=== PATIENT | female | born 1945 | race Caucasian/White ===

== ENCOUNTER 2017-04-17 19:57 | Inpatient (IN) | payer OTHER ==
[~2017-04-17] VITALS: Ht 142.2 cm; Wt 43.5 kg
[~2017-04-17 19:57] MED LIST: APR10 PO; ASPEC81 PO; ISR10 PO; LPT10 PO; LSX20 PO; NTRSLP4 SL; TPRSR25 PO
[2017-04-17] MEDS ORDERED: ONDANSETRON INJ 2 MG/ML 2 ML VIAL ONE ×2 (20:02→20:26)
[2017-04-17 20:25] LABS: ALLEN TEST POS (POS); O2 ADMINISTRATION 10 L
[2017-04-17 20:27] LABS: BASO % 0.3 %; BASO ABS # 0.02 K/uL (0-0.2); COMPLETE YES; EOS % 0.7 %; HEMATOCRIT 33.6 % (37-47); IG% 1.7 %; LYMPH % 31.1 %; LYMPH ABS # 1.82 K/uL (1.2-3.4); MEAN CELL VOLUME 91.3 fL (80-100); MEAN CORPUSCULAR HEMOGLOBIN 29.6 pg (25-34); MEAN CORPUSCULAR HGB CONC 32.4 g/dl (32-36); MEAN PLATELET VOLUME 10.3 fL (7.4-10.4); MONO % 5.3 %; NEUT % 60.9 %; PLATELET COUNT 201 K/uL (130-400); RED BLOOD COUNT 3.68 M/uL (4.2-5.4); WHITE BLOOD COUNT 5.86 K/uL (4.8-10.8)
[2017-04-17] MEDS ORDERED: ONDANSETRON INJ 2 MG/ML 2 ML VIAL IV STA (20:28)
[2017-04-17 20:29] LABS: ARTERIAL BLD GAS O2 SATURATION 99.4 % (90-95); ARTERIAL BLOOD GAS BASE EXCESS -2.6 mEq/L (-9-1.8); ARTERIAL BLOOD GAS HCO3 22 mmol/L (19-24); ARTERIAL BLOOD GAS PO2 208 mm/Hg (80-95); ARTERIAL BLOOD GAS pH 7.38 (7.35-7.45)
[2017-04-17 20:40] LABS: PARTIAL THROMBOPLASTIN RATIO 0.8; PROTHROMBIN TIME (PATIENT) 10.8 SECONDS (9.0-12.0)
[2017-04-17 20:46] LABS: ALT/SGPT 101 U/L (12-78); AST/SGOT 131 U/L (15-37); BLOOD UREA NITROGEN 24 mg/dl (7-18); CARBON DIOXIDE 21 mmol/L (21-32); CHLORIDE 112 mmol/L (98-107); GLUCOSE 175 mg/dl (70-99); POTASSIUM 3.5 mmol/L (3.5-5.1); SODIUM 143 mmol/L (136-145)
--- NOTE | 2017-04-17 20:50 | DIAGNOSTIC IMAGING REPORT ---
CHEST ONE VIEW PORTABLE CLINICAL HISTORY: Cough. Respiratory difficulty. COMPARISON STUDY: 06/02/2016 FINDINGS: The heart is the upper limits of normal in size. There is no failure. There are bibasal airspace opacities, atelectatic versus infectious/inflammatory. There are no significant pleural effusions.[ IMPRESSION: Nonspecific bibasal airspace opacities. Clinical correlation in regards to a pneumonitis is recommended. Clinical and radiographic follow-up is recommended Electronically signed by: Chapincito Berkowitz M.D. 04/17/2017 8:48 PM Dictated Date/Time: 04/17/2017 8:47 PM
[2017-04-17 20:52] LABS: ALKALINE PHOSPHATASE 78 U/L (45-117); CKMB/CK RATIO 6.1 (0-3.0)
[2017-04-17 20:53] LABS: ISTAT CREATININE 1.6 mg/dl (0.6-1.3); ISTAT HEMOGLOBIN 11.9 g/dl (12.0-16.0); ISTAT IONIZED CALCIUM 1.13 mmol/l (1.12-1.32)
[2017-04-17] MEDS ORDERED: ASPI81TA28 PO (20:58)
[2017-04-17] MEDS ORDERED: HYDR-4715 PO (20:58)
[2017-04-17] MEDS ORDERED: ISS/10 PO (20:58)
[2017-04-17] MEDS ORDERED: NITR0.4S UT (20:58)
[2017-04-17] MEDS ORDERED: METRONIDAZOLE 500MG / 100ML NSS IV STA (20:58)
[2017-04-17] MEDS ORDERED: METO25TA3 PO (20:58)
[2017-04-17] MEDS ORDERED: FURO-85 PO (20:58)
[2017-04-17] MEDS ORDERED: ATOR10TA88 PO (20:58)
[2017-04-17] MEDS ORDERED: LISI10TA PO (20:59)
[2017-04-17] MEDS ORDERED: AMPICILLIN/SULBACTAM SOD INJ 3,000 MG in SODIUM CHLORIDE 0.9% 100ML 100 ML IV ONE (21:00)
--- NOTE | 2017-04-17 21:16 | DIAGNOSTIC IMAGING REPORT ---
CT SCAN OF THE ABDOMEN AND PELVIS WITHOUT CONTRAST CLINICAL HISTORY: Vomiting, abdominal pain, cardiac arrest. COMPARISON STUDY: No previous studies for comparison. TECHNIQUE: CT scan of the abdomen and pelvis was performed from the lung bases to the proximal femurs. Images are reviewed in the axial, sagittal, and coronal planes. IV contrast was not administered for this examination. A dose lowering technique was utilized adhering to the principles of ALARA. CT DOSE: 327.85 mGy.cm FINDINGS: Lower chest: There are small bilateral pleural effusions. There are by basilar interstitial opacities. There is a small hiatal hernia Liver: The unenhanced liver is normal in size, contour, and attenuation. There is no intrahepatic biliary ductal dilatation. Gallbladder: Unremarkable. Spleen: Normal in size and attenuation. Pancreas: Unremarkable. Adrenal glands: Unremarkable. Kidneys: There are bilateral renal calcifications. Is unclear whether these are calculi or parenchymal calcifications. There is no significant hydronephrosis. No ureteral calculi are visualized. Bowel: There are no transition zones indicate bowel obstruction. There is colonic diverticulosis. There are no acute peridiverticular inflammatory changes. There is no evidence of acute appendicitis. Evaluation is limited due to the lack of intravenous and oral contrast as well as motion artifact. There is fluid and formed stool within the rectosigmoid Peritoneum: There is no intraperitoneal free air or abdominal ascites. As a fat-containing umbilical hernia. Vasculature: The abdominal aorta is normal in course and caliber. Adenopathy: None. Pelvic viscera: There are calcifications within uterine fibroids. Skeletal structures: No destructive lesions are visualized. Evaluation is limited due to the lack of intravenous and oral contrast. IMPRESSION: 1. Small bilateral pleural effusions and bibasal interstitial opacities 2. Hiatal hernia 3. No evidence of bowel obstruction. No evidence of free air. Fluid and formed stool within the rectosigmoid 4. No evidence of acute diverticulitis. No evidence of acute appendicitis 5. Calcified fibroid uterus 6. Bilateral renal calcifications, possibly parenchymal. Electronically signed by: Chapincito Berkowitz M.D. 04/17/2017 9:15 PM Dictated Date/Time: 04/17/2017 9:07 PM
--- NOTE | 2017-04-17 21:53 | EMERGENCY ROOM VISIT NOTE ---
History Report prepared by Bernardo: Devaughn Lopez Under the Supervision of: Dr. Steven Aviles D.O. First contact with patient: 19:50 Stated Complaint: CARDIAC ARREST History of Present Illness The patient is a 71 year old female who presents to the Emergency Room with resolved cardiac arrest that occurred [employer]. The patient has a history of a mental disability. Per the family, they heard a noise coming from her room. They found her on the floor in her closet unresponsive and initiated CPR immediately. When the police arrived, they brought in an AED, applied it, and shocked her once, bringing her back into sinus rhythm. When EMS arrived, she was still in sinus rhythm with a good pulse and blood pressure, and she was breathing. Upon arriving, the patient is having episodes of vomiting with some nausea. She went to a oil rag washer 2 weeks ago and received a ECG that was negative. Source of History: patient, family, police, EMS Onset: [employer] Position: other (global) Symptom Intensity: severe Quality: other (Cardiac Arrest) Timing: resolved Associated Symptoms: + nausea, + vomiting Review of Systems See HPI for pertinent positives & negatives. A total of 10 systems reviewed and were otherwise negative. Past Medical & Surgical Medical Problems: (1) Acute exacerbation of CHF (congestive heart failure) (2) CHF (congestive heart failure) (3) CHF (congestive heart failure) (4) Chronic kidney disease (CKD), stage III (moderate) (5) Chronic left ventricular systolic dysfunction (6) Dyslipidemia (7) HTN (hypertension) (8) Intellectual disability Family History Cancer Diabetes mellitus FH: pneumonia FH: prostate cancer Hypertension Kidney disease Kidney stones Seizures Social History Smoking Status: Never Smoker Smokeless Tobacco Use: No Drug Use: none Marital Status: single Housing Status: lives with family Occupation Status: unemployed Current/Historical Medications Scheduled Aspirin (Aspirin Ec), 81 MG PO DAILY Atorvastatin (Lipitor), 10 MG PO HS Furosemide (Lasix), 20 MG PO 2XWK Hydralazine Hcl (Apresoline), 10 MG PO TID Isosorbide Dinitrate (Isordil), 10 MG PO TID Lisinopril (Prinivil), 10 MG PO DAILY Metoprolol Succinate (Toprol Xl), 25 MG PO DAILY Nitroglycerin (Nitrostat), 0.4 MG UT PRN Allergies Coded Allergies: No Known Allergies (Unverified , 06/02/16) Physical Exam Vital Signs Date Time Temp Pulse Resp B/P (MAP) Pulse Ox O2 Delivery O2 Flow Rate FiO2 04/17/17 22:15 66 20 154/78 99 Nasal Cannula 2.0 04/17/17 22:00 65 152/77 100 Nasal Cannula 2.0 04/17/17 21:30 66 124/74 95 Nasal Cannula 2.0 04/17/17 21:15 65 22 145/72 94 Nasal Cannula 2.0 04/17/17 20:45 69 21 137/80 94 Nasal Cannula 2.0 04/17/17 20:40 95 Nasal Cannula 2.0 04/17/17 20:40 36.9 86 14 170/93 88 Room Air 04/17/17 20:25 73 24 150/75 99 Nasal Cannula 4.0 04/17/17 20:20 100 Nasal Cannula 4.0 04/17/17 20:15 66 21 150/71 100 Non-Rebreather 10.0 04/17/17 20:10 84 04/17/17 20:01 100 Non-Rebreather 15.0 Physical Exam CONSTITUTIONAL/VITAL SIGNS: Reviewed / noted above. GENERAL: Non-toxic in appearance. INTEGUMENTARY: Warm, dry, and [place]. HEAD: Normocephalic. EYES: without scleral icterus or trauma. ENT/OROPHARYNX: clear and moist. LYMPHADENOPATHY/NECK: Is supple without lymphadenopathy or meningismus. RESPIRATORY: Decreased breath sounds on the right. CARDIOVASCULAR: Regular rate and rhythm. GI/ABDOMEN: Soft and nontender. No organomegaly or pulsatile mass. No rebound or guarding. Normal bowel sounds. EXTREMITIES: Warm and well perfused. BACK: No CVA tenderness. NEUROLOGICAL: Intact without focal deficits. PSYCHIATRIC: normal affect. MUSCULOSKELETAL: Normally developed with good muscle tone. Medical Decision & Procedures ER Provider Diagnostic Interpretation: Radiology results as stated below per my review and radiologist interpretation: CHEST ONE VIEW PORTABLE CLINICAL HISTORY: Cough. Respiratory difficulty. COMPARISON STUDY: 06/02/2016 FINDINGS: The heart is the upper limits of normal in size. There is no failure. There are bibasal airspace opacities, atelectatic versus infectious/inflammatory. There are no significant pleural effusions.[ IMPRESSION: Nonspecific bibasal airspace opacities. Clinical correlation in regards to a pneumonitis is recommended. Clinical and radiographic follow-up is recommended Electronically signed by: Chapincito Berkowitz M.D. 04/17/2017 8:48 PM Dictated Date/Time: 04/17/2017 8:[address] SCAN OF THE ABDOMEN AND PELVIS WITHOUT CONTRAST CLINICAL HISTORY: Vomiting, abdominal pain, cardiac arrest. COMPARISON STUDY: No previous studies for comparison. TECHNIQUE: CT scan of the abdomen and pelvis was performed from the lung bases to the proximal femurs. Images are reviewed in the axial, sagittal, and coronal planes. IV contrast was not administered for this examination. A dose lowering technique was utilized adhering to the principles of ALARA. CT DOSE: 327.85 mGy.cm FINDINGS: Lower chest: There are small bilateral pleural effusions. There are by basilar interstitial opacities. There is a small hiatal hernia Liver: The unenhanced liver is normal in size, contour, and attenuation. There is no intrahepatic biliary ductal dilatation. Gallbladder: Unremarkable. Spleen: Normal in size and attenuation. Pancreas: Unremarkable. Adrenal glands: Unremarkable. Kidneys: There are bilateral renal calcifications. Is unclear whether these are calculi or parenchymal calcifications. There is no significant hydronephrosis. No ureteral calculi are visualized. Bowel: There are no transition zones indicate bowel obstruction. There is colonic diverticulosis. There are no acute peridiverticular inflammatory changes. There is no evidence of acute appendicitis. Evaluation is limited due to the lack of intravenous and oral contrast as well as motion artifact. There is fluid and formed stool within the rectosigmoid Peritoneum: There is no intraperitoneal free air or abdominal ascites. As a fat-containing umbilical hernia. Vasculature: The abdominal aorta is normal in course and caliber. Adenopathy: None. Pelvic viscera: There are calcifications within uterine fibroids. Skeletal structures: No destructive lesions are visualized. Evaluation is limited due to the lack of intravenous and oral contrast. IMPRESSION: 1. Small bilateral pleural effusions and bibasal interstitial opacities 2. Hiatal hernia 3. No evidence of bowel obstruction. No evidence of free air. Fluid and formed stool within the rectosigmoid 4. No evidence of acute diverticulitis. No evidence of acute appendicitis 5. Calcified fibroid uterus 6. Bilateral renal calcifications, possibly parenchymal. Electronically signed by: Chapincito Berkowitz M.D. 04/17/2017 9:15 PM Dictated Date/Time: 04/17/2017 9:07 PM Laboratory Results 04/17/17 20:10 Red Blood Count 3.68, Mean Corpuscular Volume 91.3, Mean Corpuscular Hemoglobin 29.6, Mean Corpuscular Hemoglobin Concent 32.4, Mean Platelet Volume 10.3, Neutrophils (%) (Auto) 60.9, Lymphocytes (%) (Auto) 31.1, Monocytes (%) (Auto) 5.3, Eosinophils (%) (Auto) 0.7, Basophils (%) (Auto) 0.3, Neutrophils # (Auto) 3.57, Lymphocytes # (Auto) 1.82, Monocytes # (Auto) 0.31, Eosinophils # (Auto) 0.04, Basophils # (Auto) 0.02 04/17/17 20:10 Test 04/17/17 20:10 04/17/17 20:14 04/17/17 20:17 04/17/17 20:18 White Blood Count 5.86 K/uL (4.8-10.8) Red Blood Count 3.68 M/uL (4.2-5.4) Hemoglobin 10.9 g/dL (12.0-16.0) Hematocrit 33.6 % (37-47) Mean Corpuscular Volume 91.3 fL (80-100) Mean Corpuscular Hemoglobin 29.6 pg (25-34) Mean Corpuscular Hemoglobin Concent 32.4 g/dl (32-36) Platelet Count 201 K/uL (130-400) Mean Platelet Volume 10.3 fL (7.4-10.4) Neutrophils (%) (Auto) 60.9 % Lymphocytes (%) (Auto) 31.1 % Monocytes (%) (Auto) 5.3 % Eosinophils (%) (Auto) 0.7 % Basophils (%) (Auto) 0.3 % Neutrophils # (Auto) 3.57 K/uL (1.4-6.5) Lymphocytes # (Auto) 1.82 K/uL (1.2-3.4) Monocytes # (Auto) 0.31 K/uL (0.11-0.59) Eosinophils # (Auto) 0.04 K/uL (0-0.5) Basophils # (Auto) 0.02 K/uL (0-0.2) RDW Standard Deviation 46.8 fL (36.4-46.3) RDW Coefficient of Variation 13.9 % (11.5-14.5) Immature Granulocyte % (Auto) 1.7 % Immature Granulocyte # (Auto) 0.10 K/uL (0.00-0.02) Prothrombin Time 10.8 SECONDS (9.0-12.0) Prothromb Time International Ratio 1.0 (0.9-1.1) Activated Partial Thromboplast Time 21.0 SECONDS (21.0-31.0) Partial Thromboplastin Ratio 0.8 Estimated GFR () 34.3 Estimated GFR (Non- 29.6 BUN/Creatinine Ratio 14.0 (10-20) Calcium Level 8.0 mg/dl (8.5-10.1) Total Bilirubin 0.3 mg/dl (0.2-1) Direct Bilirubin < 0.1 mg/dl (0-0.2) Aspartate Amino Transf (AST/SGOT) 131 U/L (15-37) Alanine Aminotransferase (ALT/SGPT) 101 U/L (12-78) Alkaline Phosphatase 78 U/L (45-117) Total Creatine Kinase 116 U/L (26-192) Creatine Kinase MB 7.1 ng/ml (0.5-3.6) Creatine Kinase MB Ratio 6.1 (0-3.0) Total Protein 7.3 gm/dl (6.4-8.2) Albumin 3.1 gm/dl (3.4-5.0) Lipase 322 U/L (73-393) Bedside Lactic Acid Venous 3.33 mmol/L (0.90-1.70) Arterial Blood pH 7.38 (7.35-7.45) Arterial Blood Partial Pressure CO2 39 mmHg (35-46) Arterial Blood Partial Pressure O2 208 mm/Hg (80-95) Arterial Blood HCO3 22 mmol/L (19-24) Arterial Blood Oxygen Saturation 99.4 % (90-95) Arterial Blood Base Excess -2.6 mEq/L (-9-1.8) Arterial Blood Gas Delivery 10 L Ar Test POS (POS) Bedside Hemoglobin 11.9 g/dl (12.0-16.0) Bedside Hematocrit 35 % (37-47) Bedside Sodium 142 mEq/L (135-144) Bedside Potassium 3.9 mEq/L (3.3-5.0) Bedside Chloride 108 mEq/L (101-112) Bedside Total CO2 23 mEq/l (24-31) Anion Gap 17.0 mmol/L (16-25) Bedside Blood Urea Nitrogen 29 mg/dl (7-18) Bedside Creatinine 1.6 mg/dl (0.6-1.3) Bedside Glucose (other) 182 mg/dl (70-99) Bedside Ionized Calcium (Feliz) 1.13 mmol/l (1.12-1.32) Test 04/17/17 21:10 Laboratory results as stated above per my review. Medications Administered Medications (Trade) Dose Ordered Sig/Kaila Route Start Time Stop Time Status Last Admin Dose Admin Ondansetron HCl (Zofran Inj) 4 mg STK-MED ONCE .ROUTE 04/17/17 20:02 04/17/17 20:03 DC 04/17/17 20:52 4 MG Ondansetron HCl (Zofran Inj) 4 mg NOW STAT IV 04/17/17 20:28 04/17/17 20:29 DC 04/17/17 20:53 4 MG Ampicillin Sodium/ Sulbactam Sodium 3000 mg/Sodium Chloride 108 ml @ 200 mls/hr ONE ONCE IV 04/17/17 21:00 04/17/17 21:32 DC 04/17/17 21:26 200 MLS/HR Metronidazole (Flagyl / Nss) 500 mg NOW STAT IV 04/17/17 20:58 04/17/17 21:01 DC 04/17/17 22:54 500 MG ECG Indication: other (Cardiac Arrest) Rate (beats per minute): 72 Rhythm: normal sinus Findings: no acute ischemic change, no ectopy ED Course 1949: Previous medical records were reviewed. The patient was evaluated in room B1. A complete history and physical examination was performed. 2001: Ordered Zofran Inj 4 mg .ROUTE 2025: Ordered Zofran Inj 4 mg .ROUTE 2027: Ordered Zofran Inj 4 mg IV 2030: The patient's sister has arrived at this time. The patient lives with her. Her sister states that the patient had no complaints earlier this evening. She was folding her clothing like usual and ate dinner. She noticed the dog was acting weird and went in to check on her sister again and noticed she was lifeless on the ground. She denies any seizure activity. The sister's initiated CPR until police came 3-5 minutes later. They continued CPR until EMS arrived. She states that currently the patient is at baseline mentally. 2057: Ordered Flagyl / Nss 500 mg IV 2099: Ordered Ampicillin Sodium/ Sulbactam Sodium 3000 mg/Sodium Chloride 108 ml @ 200 mls/hr IV 2103: On reevaluation, the patient is resting. I discussed the results and findings with the patient's family. They verbalized agreement of the treatment plan. I spoke with Dr. Bucio of the [facility]. The patient will be evaluated for further management and care. Medical Decision Differential includes acute cardiac dysrhythmia, microinfarction, CVA, TIA, dehydration, anemia, electrolyte disturbance, seizure, trauma, intracranial bleeding, acute vascular catastrophe, thoracic aortic dissection, PE, abdominal aortic aneurysm rupture, infection, hypoglycemia, overdose, trauma. This is a 71-year-old female who was found unresponsive by the family. The patient has a history of MR. Baseline for the patient is that she does not walk. She does crawl around. She responds and speaks but it is difficult to understand at baseline. The patient was fine 10 minutes prior to being found unresponsive on the floor in her bedroom. The patient was not believed to be breathing by the family and CPR was initiated. The family member who was performing CPR stated that she did seem to breathe several times during the 3 minutes of CPR. Police arrived on scene and AED advised shock. The patient was shocked once. When EMS arrived on scene, they found the patient to have pulses and be in a sinus rhythm. The patient slowly regained consciousness during EMS transport. Prehospital blood sugar was in the 300 range. There was no reported seizure activity per family. The patient did not have any specific complaints prior to the episode today. She ate about 1 hour prior. On the patient's arrival, the patient is found to be awake and alert. Family arrived shortly thereafter. The patient is currently at her baseline mental status. The patient is observant of her surroundings. She does attempt to speak but she is difficult to understand for me. The family is able to understand her better. She follows some basic commands. The patient's exam was relatively unremarkable. She did complain of some abdominal discomfort on palpation. Blood work reveals an elevated troponin. She has some mild anemia. ABG reveals a normal acid base status with adequate oxygenation and ventilation. Chest x-ray is suggestive of possible infiltrate or atelectasis. A CT scan of the abdomen and pelvis did not show acute process. The patient was started on IV antibiotics. IV Unasyn and IV Flagyl for possible aspiration. The patient did vomit several times in the emergency department. Her 12-lead EKG did not show any acute injury pattern. She did not have any arrhythmias here. She was given Zofran for the nausea and vomiting. The patient will be seen by the hospitalist, for further inpatient evaluation and care. Medication Reconcilliation Current Medication List: was personally reviewed by me Blood Pressure Screening Patient's blood pressure: Elevated blood pressure Blood pressure disposition: Elevated BP felt to be situational Consults Time Called: 2099 Consulting Physician: Dr. Rupinder Almeida Hospitalist Returned Call: 2103 Discussed the patient's case. The patient will be evaluated for further treatment and disposition. Impression Primary Impression: Cardiac arrest Additional Impressions: Elevated troponin Aspiration pneumonitis Critical Care I have personally spent 35 minutes of critical care time in the direct management of this patient. This includes bedside care, interpretation of diagnostic studies, and testing, discussion with consultants, patient, and family members, and other required patient management activities. Scribe Attestation The scribe's documentation has been prepared under my direction and personally reviewed by me in its entirety. I confirm that the note above accurately reflects all work, treatment, procedures, and medical decision making performed by me. Departure Information Dispostion Being Evaluated By Hospitalist Referrals Edda Suggs M.D. (PCP) Problem Qualifiers
--- NOTE | 2017-04-17 22:06 | DIAGNOSTIC IMAGING REPORT ---
CT HEAD WITHOUT CONTRAST (CT) CLINICAL HISTORY: Cardiac arrest. Change in mental status. Unresponsive patient. COMPARISON STUDY: 06/02/2016 TECHNIQUE: Axial CT of the brain is performed from the vertex to the skull base. IV contrast was not administered for this examination. A dose lowering technique was utilized adhering to the principles of ALARA. CT DOSE: 1151.75 mGy.cm FINDINGS: No intra or extra-axial mass lesions are visualized. 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 There is no CT evidence of acute cortical infarction. There is no acute hemorrhage. There are patchy white matter hypodensities likely on a small vessel basis. There is mild maxillary sinus mucosal thickening. IMPRESSION: Stable left hemispheric porencephalic cyst. No acute intracranial findings. Electronically signed by: Chapincito Berkowitz M.D. 04/17/2017 10:04 PM Dictated Date/Time: 04/17/2017 10:00 PM
[2017-04-17] MEDS ORDERED: ALBUT/IPRATROP 3MG/0.5MG NEB 3 ML VIAL INH STA (22:23)
[2017-04-17] MEDS ORDERED: TRAMADOL HCL 50 MG TAB PO PRN (22:30)
[2017-04-17] MEDS ORDERED: ALBUT/IPRATROP 3MG/0.5MG NEB 3 ML VIAL INH PRN (22:30)
[2017-04-17] MEDS ORDERED: HYDROmorphone INJ 0.5 MG/0.5 ML SYR IV PRN (22:30)
[2017-04-17] MEDS ORDERED: PROMETHAZINE HCL INJ 12.5 MG in SODIUM CHLORIDE 0.9% 50ML 50 ML IV PRN (22:30)
[2017-04-17] MEDS ORDERED: ACETAMINOPHEN 325 MG TAB PO PRN ×2 (22:30→23:00)
[2017-04-17] MEDS ORDERED: NITROGLYCERIN 0.4 MG SL PER TAB CHARGE SL PRN (22:30)
[2017-04-17] MEDS ORDERED: ALBUT/IPRATROP 3MG/0.5MG NEB 3 ML VIAL ONE (22:34)
[2017-04-17] MEDS ORDERED: AMPICILLIN/SULBACTAM CONSULT ACTIVE PRN ×2 (22:45)
[2017-04-17 23:25] VITALS: BP 139/62; PULSE 77; TEMP 36.4; O2SAT 98; Ht 142.2 cm; Wt 43.5 kg
[2017-04-17 23:26] LABS: MAGNESIUM 2.1 mg/dl (1.8-2.4)
[2017-04-17] MEDS ORDERED: POTASSIUM CHLORIDE 10 MEQ TABCR PO ONE (23:30)
[2017-04-17] MEDS ORDERED: LACTATED RINGER'S 1000ML 1,000 ML IV SCH (23:30)
[2017-04-18] MEDS: HydrALAZINE 10 MG TAB PO SCH ×4 (00:14→21:32)
[2017-04-18 00:27] LABS: MANUAL MICROSCOPIC REQUIRED? NO; REVIEW REQ? YES; URINE APPEARANCE CLEAR (CLEAR); URINE BILIRUBIN NEG (NEG); URINE COLOR YELLOW; URINE EPITHELIAL CELL AUTO >30 /lpf (0-5); URINE NITRITE NEG (NEG); URINE SPECIFIC GRAVITY 1.016 (1.000-1.030); UROBILINOGEN NEG (NEG); ZZUR CULT IF INDIC CLEAN CATCH NO
--- NOTE | 2017-04-18 02:42 | HISTORY & PHYSICAL EXAMINATION ---
DATE OF ADMISSION: 04/17/2017 PRIMARY CARE DOCTOR: Dr. Suggs CHIEF COMPLAINT: Cardiac arrest as per records. HISTORY OF PRESENT ILLNESS: History was obtained from ER MD, family, and records. Unable to obtain history from the patient secondary to intellectual impairment. Medical history is significant for chronic systolic heart failure secondary to presumed ischemic cardiomyopathy, small pericardial effusion per records, hypertension, hyperlipidemia, chronic renal disease (baseline creatinine of 1.4) , chronic anemia (baseline hemoglobin of 10-11). Recent confinement last February 2016 for decompensated heart failure. Last followup with [facility] last month. Stable cardiac signs and symptoms as per outpatient note. A 2D echo in August 2016 showed [id number] LV systolic dysfunction, large sized apical, anteroseptal, anterior, posterior, lateral wall abnormality with hypokinetic segments. Calculated EF was 32%. LAD, mild MR, small pericardial effusion, no pulmonary hypertension. This afternoon, the patient's family heard a noise coming from patient's room. PX was found a room closet, unresponsive. Cardiac compressions were initiated by [id number]. When police arrived, AED was applied to patient. Shock advised and delivered. A few minutes later, the patient woke up. Good pulse and good blood pressure as per family. Patient was breathing. Normal sinus rhythm on initial EKG done by EMS. Patient later was noted to have vomited - cough, gurgly breathing later noted. Patient was brought to the Emergency Room. Unasyn for possible aspiration pneumonitis. MEDICAL HISTORY: As above. SURGERIES: Childhood foot surgery. HOME MEDICATIONS: aspirin, Lipitor, Lasix, hydralazine, Isordil, lisinopril, Topral XL and Nitrostat. ALLERGIES: No drug allergies. FAMILY HISTORY: Kidney disease. PERSONAL AND SOCIAL HISTORY: Nonsmoker. No chronic intake of alcoholic beverages. Disabled, lives with sister. REVIEW OF SYSTEMS: could not be fully obtained. PHYSICAL EXAMINATION: VITAL SIGNS: Blood pressure was noted to be 150/78 pulse 65, RR 21, temperature 36.9 and sats 100 on 4 liters. GENERAL: Noted to be comfortable, in no respiratory distress, coherent. Gurgly respiration SKIN: Pallor. HEENT: Pale palpebral conjunctivae. Dry mucosa. NECK: No JVD. Supple. CHEST: Decreased effort. HEART: Diminished S1, S2. ABDOMEN: Soft. EXTREMITIES: No edema. No tenderness on exam. NEUROLOGIC: Coherent. LABORATORIES: Hemoglobin was noted to be 10.9, hematocrit 30, white cell count 5.8 and platelets of 206. Sodium 140, potassium 3.5 chloride 106, CO2 21, BUN 24, creatinine 1.7 and glucose was noted to be 182. troponin was noted to be 0.305. EKG as per my interpretation : rate 75, normal sinus rhythm, biatrial enlargements, LVH, T-wave flattening in the lateral leads, poor R-wave progression Chest x-ray; nonspecific bibasilar airspace opacities, pneumonitis. CT abdomen and pelvis; small bilateral pleural effusions, hiatal hernia, no bowel obstruction. No diverticulitis. Fibroid uterus, renal calcification possibly parenchymal. CT of the head; stable left porencephalic cyst. ASSESSMENT: 1. Cardiac arrest Return of spontaneous circulation obtained after CPR/1 AED shock at home. Patient brought to the emergency room with stable vital signs and at baseline mentation as per family. Patient certainly at risk for malignant ventricular arrhythmias given history of cardiomyopathy presumed to be ischemic. 2. Chronic systolic heart failure presumed ischemic cardiomyopathy (ejection fraction of 32% on 2D echo in 2016) Patient may slightly on the dry side. 3. aspiration pneumonitis post arrest, no sepsis 4. Acute renal failure on chronic renal insufficiency. 5. Chronic anemia secondary to CKD, hemoglobin baseline 6. History intellectual impairment 7. hyperglycemia rule out diabetes mellitus PLAN: PCU Augment potassium 2D echo, Cardiology consult RE : cardiac arrest. Patient known to [facility]. Unasyn for possible aspiration pneumonitis. Monitor creatinine response to gentle IV hydration. Hold home diuretics. ACEI for now until creatinine at baseline. Check hemoglobin A1c DVT prophylaxis, Heparin subQ. Code 2 level status, okay with one time CPR and shock attempt/no intubation as per sister/POA, Miss Rochelle Concepcion. She requests updates from providers at [phone]. MTDD
[2017-04-18 04:39] VITALS: BP 145/78; PULSE 77; TEMP 36.9; O2SAT 96
[2017-04-18] MEDS: HEPARIN SOD 5000 UNIT/0.5 ML CARP SQ SCH ×3 (06:05→21:37)
[2017-04-18 06:23] LABS: BASO % 0.1 %; BASO ABS # 0.01 K/uL (0-0.2); COMPLETE YES; HEMATOCRIT 31.8 % (37-47); IG% 0.1 %; LYMPH % 13.6 %; LYMPH ABS # 1.13 K/uL (1.2-3.4); MEAN CELL VOLUME 90.9 fL (80-100); MEAN CORPUSCULAR HEMOGLOBIN 29.4 pg (25-34); MEAN CORPUSCULAR HGB CONC 32.4 g/dl (32-36); MONO % 8.1 %; NEUT % 78.1 %; PLATELET COUNT 180 K/uL (130-400); WHITE BLOOD COUNT 8.31 K/uL (4.8-10.8)
[2017-04-18] MEDS: ISOSORBIDE DINITRATE 10 MG TAB PO SCH ×3 (07:00→17:26)
[2017-04-18 07:13] LABS: ALKALINE PHOSPHATASE 62 U/L (45-117); ALT/SGPT 88 U/L (12-78); AST/SGOT 92 U/L (15-37); BLOOD UREA NITROGEN 21 mg/dl (7-18); BUN/CREATININE RATIO 15.1 (10-20); CALCIUM 8.2 mg/dl (8.5-10.1); CARBON DIOXIDE 25 mmol/L (21-32); CHLORIDE 113 mmol/L (98-107); GLUCOSE 117 mg/dl (70-99); POTASSIUM 4.2 mmol/L (3.5-5.1); SODIUM 143 mmol/L (136-145)
[2017-04-18 07:41] VITALS: BP 154/76; PULSE 72; TEMP 36.9; O2SAT 96
[2017-04-18] MEDS: AMPICILLIN/SULBACTAM SOD INJ 3,000 MG in SODIUM CHLORIDE 0.9% 100ML 100 ML IV SCH ×2 (10:11→21:32)
[2017-04-18] MEDS: ASPIRIN 81 MG ECTAB PO SCH (10:12)
[2017-04-18] MEDS: METOPROLOL SUCC 25MG EXT REL TAB PO SCH (10:12)
--- NOTE | 2017-04-18 13:17 | ECHOCARDIOGRAM REPORT ---
*NOTICE TO RECEIVING DEMOCRAT AGENCY This information is strictly Confidential and protected under [place] law. [place] law prohibits you from making any further disclosure of this information unless further disclosure is expressly permitted by the written consent of the person to whom it pertains or is authorized by law. A general authorization for the release of medical or other information is not sufficient for this purpose. Hospital accepts no responsibility if the information is made available to any other person, INCLUDING THE PATIENT. Interpretation Summary * Name: HOLLY MOSLEY Study Date: 04/18/2017 09:16 AM * Patient Location: .2E\S\E209\S\1 * : 1945 (M/d/yyyy) Gender: Female Height: 58 in * Age: 71 yrs Ethnicity: CA Weight: 98 lb * Ordering Physician: Ruddy Bucio * Referring Physician: Self, Referred * Performed By: Janell Rodas RCS * * Reason For Study: Cardiac Arrest * BSA: 1.3 m2 * -- Conclusions -- * The left ventricle is normal in size. * There is moderate concentric left ventricular hypertrophy. * Ejection Fraction = 35-40%. * The right ventricular systolic function is normal. * The left atrium is moderately dilated. * Right atrial size is normal. * There is mild to moderate mitral regurgitation. * There is trace tricuspid regurgitation. Procedure Details * Left Ventricle The left ventricle is normal in size. There is moderate concentric left ventricular hypertrophy. Ejection Fraction = 35-40%. * Right Ventricle The right ventricle is normal size. The right ventricular systolic function is normal. * Atria The left atrium is moderately dilated. Right atrial size is normal. There is no evidence of atrial septal defect, but resolution does not allow assessment for a patent foramen ovale. * Mitral Valve The mitral valve anatomy is normal. There is mild to moderate mitral regurgitation. * Tricuspid Valve The tricuspid valve anatomy is normal. There is trace tricuspid regurgitation. * Aortic Valve The aortic valve is tricuspid. The leaflet thickness if normal. There is no aortic stenosis, and no significant insufficiency. Aortic stenosis is absent. There is no significant aortic regurgitation. * Pulmonic Valve The pulmonic valve is not well visualized. There is no pulmonic valvular regurgitation. * Great Vessels The aortic root and proximal ascending aorta are normal sized. * Pericardium/Pleural There is no pericardial effusion. * * MMode 2D Measurements and Calculations * IVSd 1.0 cm * * LVIDd 5.5 cm * LVIDs 4.2 cm * LVPWd 0.75 cm * * IVS/LVPW 1.4 * FS 22.4 % * EDV(Teich) 145.6 ml * ESV(Teich) 80.4 ml * EF(Teich) 44.7 % * * EDV(cubed) 163.7 ml * ESV(cubed) 76.3 ml * EF(cubed) 53.4 % * * LV mass(C)d 179.2 grams * LV mass(C)dI 133.2 grams/m\S\2 * * SV(Teich) 65.1 ml * SI(Teich) 48.4 ml/m\S\2 * SV(cubed) 87.3 ml * SI(cubed) 64.9 ml/m\S\2 * * Ao root diam 2.5 cm * Ao root area 4.9 cm\S\2 * * LVOT diam 2.0 cm * LVOT area 3.2 cm\S\2 * * LVAd ap4 27.0 cm\S\2 * LVLd ap4 6.9 cm * EDV(MOD-sp4) 85.8 ml * EDV(sp4-el) 90.0 ml * LVAs ap4 17.8 cm\S\2 * LVLs ap4 6.5 cm * ESV(MOD-sp4) 38.8 ml * ESV(sp4-el) 41.6 ml * EF(MOD-sp4) 54.7 % * EF(sp4-el) 53.8 % * * LVAd ap2 33.1 cm\S\2 * LVLd ap2 7.9 cm * EDV(MOD-sp2) 111.5 ml * EDV(sp2-el) 118.6 ml * LVAs ap2 20.8 cm\S\2 * LVLs ap2 6.8 cm * ESV(MOD-sp2) 52.6 ml * ESV(sp2-el) 54.0 ml * EF(MOD-sp2) 52.8 % * EF(sp2-el) 54.5 % * * LVLd %diff 12.3 % * EDV(MOD-bp) 106.2 ml * LVLs %diff 5.0 % * ESV(MOD-bp) 46.3 ml * EF(MOD-bp) 56.4 % * * SV(MOD-sp4) 46.9 ml * SI(MOD-sp4) 34.9 ml/m\S\2 * * SV(MOD-sp2) 58.9 ml * SI(MOD-sp2) 43.8 ml/m\S\2 * * SV(MOD-bp) 59.9 ml * SI(MOD-bp) 44.5 ml/m\S\2 * * SV(sp4-el) 48.4 ml * SI(sp4-el) 36.0 ml/m\S\2 * * SV(sp2-el) 64.7 ml * SI(sp2-el) 48.1 ml/m\S\2 * * * Doppler Measurements and Calculations * MV E max palmer 85.2 cm/sec * MV A max palmer 135.3 cm/sec * * MV E/A 0.63 * * MV dec time 0.11 sec * * Ao V2 max 119.1 cm/sec * Ao max PG 5.7 mmHg * Ao max PG (full) 3.4 mmHg * SHIMON(V,A) 2.0 cm\S\2 * SHIMON(V,D) 2.0 cm\S\2 * * LV V1 max PG 2.3 mmHg * * LV V1 max 76.0 cm/sec * * * *
[2017-04-18 14:00] VITALS: BP 162/81; PULSE 68; TEMP 36.8; O2SAT 98
[2017-04-18 15:49] VITALS: BP 195/104; PULSE 75; TEMP 36.5; O2SAT 98
--- NOTE | 2017-04-18 16:29 | CARDIOLOGY CONSULTATION ---
DATE OF CONSULTATION: 04/18/2017 CONSULTATION FOR: Juan Pablo luevano. REASON FOR CONSULTATION: Post-cardiac arrest. HISTORY OF PRESENT ILLNESS: This is a 71-year-old mentally challenged female who lives with her sister and her . Her sister is the power of employment attorney. The patient is followed by Dr. Castanon with a history of chronic systolic heart failure, presumed due to an ischemic cardiomyopathy. She also has nonrheumatic mitral regurgitation and chronic renal insufficiency. She was in her usual state of health yesterday when suddenly they noted that she was unresponsive and on the floor. The daughter's started CPR and when the police arrived there, they used an AED to shock her once to restore her heart rhythm. She was then brought to the Emergency Department. The patient is back to her baseline cognitive ability. She is currently stable and according to her sister, she is doing well. The sister is on chronic dialysis. Her next dialysis treatment is tomorrow and then Wednesday. She was hoping to have patient back home late tomorrow so that she could spend the day with her on Wednesday before having to go to dialysis. We discussed end of life care and circumstances. This patient has been in no intubation, and medications and cardioversion only in the past. The daughter had some reservation about providing the shock that she did give her at home. I reassured her that it was the right decision and that patient is back to baseline and should be able to return home. ALLERGIES: No known medical allergies. PAST MEDICAL HISTORY: As outlined above, patient has what is presumed an ischemic cardiomyopathy with severe LV dysfunction. Her estimated left ventricular ejection fraction is around 25% to 30%. She also has mitral regurgitation which is nonrheumatic. 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 She is mentally challenged. SOCIAL HISTORY: She is a never smoke. FAMILY MEDICAL HISTORY: Noncontributory. REVIEW OF SYSTEMS: A 10-point review of systems is negative except for the history of chief complaint. IMPRESSION: 1. Cardiac arrest, status post recovery with 1 shock delivered by an automated external defibrillator. 2. Known ischemic cardiomyopathy with left ventricular dysfunction. 3. Mitral regurgitation. 4. Chronic stage III or IV kidney disease. 5. Mentally challenged. RECOMMENDATIONS: As above, I had a long discussion with the sister who this patient lives with and has cared for her for many years. In the past, she has been in no intubation, and drugs and shock only. The patient is back to her baseline. The sister struggles with the need for dialysis as well as caring for her sister. If possible, she would like her to be discharged tomorrow so that she can spend Wednesday, her off dialysis day with her before having to go to dialysis on Wednesday. We had a discussion regarding quality and quantity of life. I think conservative management is appropriate and we should help the family with whenever arrangements can be made. LEROY
--- NOTE | 2017-04-18 16:58 | Progress Note ---
Internal Med Progress Note Date of Service: Apr 18, 2017. Provider Documentation: SUBJECTIVE: patient resting comfortably patient is mentally challenged can tekl her name sister with whom patient lives is in the room patient seems at baseline says some abdominal discomfort no chest pain hemodynamics stable sister does not want any aggressive measures like Cath OBJECTIVE: Vital Signs-as noted below Exam: General-alert and awake. Not in distress ENT-Normal hearing Neck-no neck masses supple Lungs-cta b/l no wheezing no crackles present Heart-s1 and s2 heard regular rate and rhythm no murmurs Abdomen-soft bowel sounds present non tender no distension Extremities- no erythema no edema Neuro-alert and oriented moves extremities Lab data as noted below. ASSESSMENT & PLAN: 1. Cardiac arrest As per H and P:"Return of spontaneous circulation obtained after CPR/1 AED shock at home. Patient brought to the emergency room with stable vital signs and at baseline mentation as per family". Hx of ischemic cardiomyopathy echo ef 35-40%, moderate LVH, mild to moderate MR,Left atrium moderately dilated Currently asymptomatic lactic acid 2.5 at admission mostly from cardiac arrest- normalized now. Seen by cardiology and appreciate inputs. Monitor in tele 2. elevated troponin Troponin 2.5 NSTEMI From demand ischemia? mostly from cardiac arrest and shock asymptomatic currently 3. Chronic systolic heart failure presumed ischemic cardiomyopathy (ejection fraction of 32% on 2D echo in 2016) Patient may slightly on the dry side.ON Toprol, hydralazine and nitrates. On gentle fluids. Will monitor for volume overload. 4. aspiration pneumonitis post arrest, no sepsis On Unasyn. Will monitor. 5. Acute renal failure on chronic renal insufficiency. Presented with cr 1.7 Cr today 1.4. At baseline. will f/u labs. 6. Chronic anemia secondary to CKD, hemoglobin baseline at 10.3 7. History intellectual impairment 8. hyperglycemia rule out diabetes will f/u hba1c levels DVT PROPHYLAXIS hep sub q DISPOSITION monitor in tele to be determined Vital Signs: Date Time Temp Pulse Resp B/P (MAP) Pulse Ox O2 Delivery O2 Flow Rate FiO2 04/18/17 15:49 36.5 75 24 195/104 (134) 98 Nasal Cannula 2.0 04/18/17 14:00 36.8 68 20 162/81 (108) 98 04/18/17 12:00 Nasal Cannula 2.0 04/18/17 08:00 Nasal Cannula 2.0 04/18/17 07:41 36.9 72 20 154/76 (102) 96 Nasal Cannula 2.0 04/18/17 04:39 36.9 77 18 145/78 (100) 96 Nasal Cannula 04/18/17 04:00 Nasal Cannula 2.0 04/17/17 23:25 36.4 77 18 139/62 98 Nasal Cannula 2.0 04/17/17 22:48 70 21 146/72 96 04/17/17 22:45 70 21 146/72 100 Nebulizer 8.0 04/17/17 22:30 68 21 144/73 96 Nasal Cannula 2.0 04/17/17 22:15 66 20 154/78 99 Nasal Cannula 2.0 04/17/17 22:00 65 152/77 100 Nasal Cannula 2.0 04/17/17 21:30 66 124/74 95 Nasal Cannula 2.0 04/17/17 21:15 65 22 145/72 94 Nasal Cannula 2.0 04/17/17 20:45 69 21 137/80 94 Nasal Cannula 2.0 04/17/17 20:40 95 Nasal Cannula 2.0 04/17/17 20:40 36.9 86 14 170/93 88 Room Air 04/17/17 20:25 73 24 150/75 99 Nasal Cannula 4.0 04/17/17 20:20 100 Nasal Cannula 4.0 04/17/17 20:15 66 21 150/71 100 Non-Rebreather 10.0 04/17/17 20:10 84 04/17/17 20:01 100 Non-Rebreather 15.0 Lab Results: Results Past 24 Hours Test 04/17/17 20:10 04/17/17 20:14 04/17/17 20:17 04/17/17 20:18 Range/Units White Blood Count 5.86 4.8-10.8 K/uL Red Blood Count 3.68 4.2-5.4 M/uL Hemoglobin 10.9 12.0-16.0 g/dL Hematocrit 33.6 37-47 % Mean Corpuscular Volume 91.3 80-100 fL Mean Corpuscular Hemoglobin 29.6 25-34 pg Mean Corpuscular Hemoglobin Concent 32.4 32-36 g/dl Platelet Count 201 130-400 K/uL Mean Platelet Volume 10.3 7.4-10.4 fL Neutrophils (%) (Auto) 60.9 % Lymphocytes (%) (Auto) 31.1 % Monocytes (%) (Auto) 5.3 % Eosinophils (%) (Auto) 0.7 % Basophils (%) (Auto) 0.3 % Neutrophils # (Auto) 3.57 1.4-6.5 K/uL Lymphocytes # (Auto) 1.82 1.2-3.4 K/uL Monocytes # (Auto) 0.31 0.11-0.59 K/uL Eosinophils # (Auto) 0.04 0-0.5 K/uL Basophils # (Auto) 0.02 0-0.2 K/uL RDW Standard Deviation 46.8 36.4-46.3 fL RDW Coefficient of Variation 13.9 11.5-14.5 % Immature Granulocyte % (Auto) 1.7 % Immature Granulocyte # (Auto) 0.10 0.00-0.02 K/uL Prothrombin Time 10.8 9.0-12.0 SECONDS Prothromb Time International Ratio 1.0 0.9-1.1 Activated Partial Thromboplast Time 21.0 21.0-31.0 SECONDS Partial Thromboplastin Ratio 0.8 Sodium Level 143 136-145 mmol/L Potassium Level 3.5 3.5-5.1 mmol/L Chloride Level 112 98-107 mmol/L Carbon Dioxide Level 21 21-32 mmol/L Anion Gap 10.0 17.0 16-25 mmol/L Blood Urea Nitrogen 24 7-18 mg/dl Creatinine 1.70 0.60-1.20 mg/dl Estimated GFR () 34.3 Estimated GFR (Non- 29.6 BUN/Creatinine Ratio 14.0 10-20 Random Glucose 175 70-99 mg/dl Calcium Level 8.0 8.5-10.1 mg/dl Total Bilirubin 0.3 0.2-1 mg/dl Direct Bilirubin < 0.1 0-0.2 mg/dl Aspartate Amino Transf (AST/SGOT) 131 15-37 U/L Alanine Aminotransferase (ALT/SGPT) 101 12-78 U/L Alkaline Phosphatase 78 45-117 U/L Total Creatine Kinase 116 26-192 U/L Creatine Kinase MB 7.1 0.5-3.6 ng/ml Creatine Kinase MB Ratio 6.1 0-3.0 Troponin I 0.305 0-0.045 ng/ml Total Protein 7.3 6.4-8.2 gm/dl Albumin 3.1 3.4-5.0 gm/dl Lipase 322 73-393 U/L Bedside Lactic Acid Venous 3.33 0.90-1.70 mmol/L Arterial Blood pH 7.38 7.35-7.45 Arterial Blood Partial Pressure CO2 39 35-46 mmHg Arterial Blood Partial Pressure O2 208 80-95 mm/Hg Arterial Blood HCO3 22 19-24 mmol/L Arterial Blood Oxygen Saturation 99.4 90-95 % Arterial Blood Base Excess -2.6 -9-1.8 mEq/L Arterial Blood Gas Delivery 10 L Ar Test POS POS Bedside Hemoglobin 11.9 12.0-16.0 g/dl Bedside Hematocrit 35 37-47 % Bedside Sodium 142 135-144 mEq/L Bedside Potassium 3.9 3.3-5.0 mEq/L Bedside Chloride 108 101-112 mEq/L Bedside Total CO2 23 24-31 mEq/l Bedside Blood Urea Nitrogen 29 7-18 mg/dl Bedside Creatinine 1.6 0.6-1.3 mg/dl Bedside Glucose (other) 182 70-99 mg/dl Bedside Ionized Calcium (Feliz) 1.13 1.12-1.32 mmol/l Test 04/17/17 22:34 04/17/17 23:29 04/17/17 23:40 04/18/17 05:53 Range/Units Magnesium Level 2.1 1.8-2.4 mg/dl Troponin I 0.849 2.570 0-0.045 ng/ml Chemistry Specimen Hemolysis Lactic Acid Level 2.5 1.1 0.4-2.0 mmol/L Urine Color YELLOW Urine Appearance CLEAR CLEAR Urine pH 6.0 4.5-7.5 Urine Specific [place] 1.016 1.000-1.030 Urine Protein 2+ NEG Urine Glucose (UA) NEG NEG Urine Ketones NEG NEG Urine Occult Blood 1+ NEG Urine Nitrite NEG NEG Urine Bilirubin NEG NEG Urine Urobilinogen NEG NEG Urine Leukocyte Esterase SMALL NEG Urine WBC (Auto) 5-10 0-5 /hpf Urine RBC (Auto) 5-10 0-4 /hpf Urine Hyaline Casts (Auto) 1-5 0-5 /lpf Urine Epithelial Cells (Auto) >30 0-5 /lpf Urine Bacteria (Auto) NEG NEG Urine Renal Epithelial Cells 0-5 /lpf White Blood Count 8.31 4.8-10.8 K/uL Red Blood Count 3.50 4.2-5.4 M/uL Hemoglobin 10.3 12.0-16.0 g/dL Hematocrit 31.8 37-47 % Mean Corpuscular Volume 90.9 80-100 fL Mean Corpuscular Hemoglobin 29.4 25-34 pg Mean Corpuscular Hemoglobin Concent 32.4 32-36 g/dl Platelet Count 180 130-400 K/uL Mean Platelet Volume 10.0 7.4-10.4 fL Neutrophils (%) (Auto) 78.1 % Lymphocytes (%) (Auto) 13.6 % Monocytes (%) (Auto) 8.1 % Eosinophils (%) (Auto) 0.0 % Basophils (%) (Auto) 0.1 % Neutrophils # (Auto) 6.49 1.4-6.5 K/uL Lymphocytes # (Auto) 1.13 1.2-3.4 K/uL Monocytes # (Auto) 0.67 0.11-0.59 K/uL Eosinophils # (Auto) 0.00 0-0.5 K/uL Basophils # (Auto) 0.01 0-0.2 K/uL RDW Standard Deviation 47.0 36.4-46.3 fL RDW Coefficient of Variation 14.1 11.5-14.5 % Immature Granulocyte % (Auto) 0.1 % Immature Granulocyte # (Auto) 0.01 0.00-0.02 K/uL Sodium Level 143 136-145 mmol/L Potassium Level 4.2 3.5-5.1 mmol/L Chloride Level 113 98-107 mmol/L Carbon Dioxide Level 25 21-32 mmol/L Anion Gap 5.0 3-11 mmol/L Blood Urea Nitrogen 21 7-18 mg/dl Creatinine 1.40 0.60-1.20 mg/dl Est Creatinine Clear Calc Drug Dose 22.7 ml/min Estimated GFR () 43.4 Estimated GFR (Non- 37.4 BUN/Creatinine Ratio 15.1 10-20 Random Glucose 117 70-99 mg/dl Calcium Level 8.2 8.5-10.1 mg/dl Total Bilirubin 0.3 0.2-1 mg/dl Direct Bilirubin < 0.1 0-0.2 mg/dl Aspartate Amino Transf (AST/SGOT) 92 15-37 U/L Alanine Aminotransferase (ALT/SGPT) 88 12-78 U/L Alkaline Phosphatase 62 45-117 U/L Total Protein 6.7 6.4-8.2 gm/dl Albumin 2.9 3.4-5.0 gm/dl
[2017-04-18 18:39] VITALS: BP 168/97; PULSE 72
[2017-04-18 19:34] VITALS: BP_SYST 168; BP_SYST 171; BP_DIAS 89; BP_DIAS 97; PULSE 67; TEMP 37.3; O2SAT 99
[2017-04-18] MEDS: ATORVASTATIN 10 MG TAB PO SCH (21:32)
[2017-04-19] VITALS: BP_SYST 180; BP_SYST 197; BP_DIAS 103; BP_DIAS 91; PULSE 73; TEMP 36.7; O2SAT 96
[2017-04-19] MEDS ORDERED: LISINOPRIL 2.5 MG TAB PO ONE (03:44)
[2017-04-19 03:48] VITALS: BP 193/105; PULSE 68; TEMP 36.8; O2SAT 99
[2017-04-19] MEDS: ISOSORBIDE DINITRATE 10 MG TAB PO SCH (06:07)
[2017-04-19] MEDS: HEPARIN SOD 5000 UNIT/0.5 ML CARP SQ SCH ×3 (06:13→21:30)
[2017-04-19 06:31] LABS: BASO % 0.3 %; BASO ABS # 0.02 K/uL (0-0.2); COMPLETE YES; EOS % 0.6 %; HEMATOCRIT 31.5 % (37-47); IG% 0.1 %; LYMPH % 21.1 %; LYMPH ABS # 1.43 K/uL (1.2-3.4); MEAN CELL VOLUME 91.3 fL (80-100); MEAN CORPUSCULAR HEMOGLOBIN 29.6 pg (25-34); MEAN CORPUSCULAR HGB CONC 32.4 g/dl (32-36); MEAN PLATELET VOLUME 10.4 fL (7.4-10.4); NEUT % 67.9 %; PLATELET COUNT 182 K/uL (130-400); RED BLOOD COUNT 3.45 M/uL (4.2-5.4); WHITE BLOOD COUNT 6.77 K/uL (4.8-10.8)
[2017-04-19 07:04] LABS: BUN/CREATININE RATIO 12.4 (10-20); CALCIUM 8.7 mg/dl (8.5-10.1); CREATININE 1.3 mg/dl (0.60-1.20); POTASSIUM 4.4 mmol/L (3.5-5.1)
[2017-04-19 08:10] LABS: ESTIMATED AVERAGE GLUCOSE 120 mg/dl; HA1C FLAG Normal (Normal)
[2017-04-19 08:11] VITALS: BP 171/90; PULSE 71; TEMP 37.7; O2SAT 94
[2017-04-19 08:25] LABS: ESTIMATED AVERAGE GLUCOSE 117 mg/dl; HA1C FLAG Normal (Normal)
[2017-04-19] MEDS: ASPIRIN 81 MG ECTAB PO SCH (08:42)
[2017-04-19] MEDS: METOPROLOL SUCC 25MG EXT REL TAB PO SCH (08:42)
[2017-04-19] MEDS: HydrALAZINE 10 MG TAB PO SCH ×3 (08:43→21:28)
[2017-04-19] MEDS: LISINOPRIL 10 MG TAB PO SCH (09:07)
--- NOTE | 2017-04-19 09:26 | Cardiology Follow-Up ---
Subjective General Date of Service: Apr 19, 2017. Chief Complaint: Cardiac arrest Pt evaluation today including: conversation w/ patient, conversation w/ family , physical exam, chart review, lab review, review of studies, review of inpatient medication list History of Present Illness Patient seen and examined. Family at bedside. No complaints. No reported issues. No known chest pain or palpitations. No current dyspnea. No peripheral edema. Telemetry: Sinus at 70 with rare to occasional PVC's in singles only. No significant ventricular arrhythmias. No significant bradycardia or pauses. April 18, 2017 TTE Interpretation Summary ([facility], Dr. Brock): The left ventricle is normal in size. There is moderate concentric left ventricular hypertrophy. Ejection Fraction = 35-40%. The right ventricular systolic function is normal. The left atrium is moderately dilated. Right atrial size is normal. There is mild to moderate mitral regurgitation. There is trace tricuspid regurgitation. EKG dated and timed 18-APR-2017 @ 06:06:38: Normal sinus rhythm. Left atrial enlargement. Left ventricular hypertrophy with repolarization abnormality. When compared with ECG of 17-APR-2017 20:05, no significant change was found. Allergies Coded Allergies: No Known Allergies (Unverified , 06/02/16) Social History Smoking Status: Never Smoker Hx Tobacco Use In Past Year?: No Hx Alcohol Use - Type And Amou: No Hx Substance Use - Type And Am: No Problem List Medical Problems: (1) Abnormal EKG Status: Acute (2) Aspiration pneumonitis Status: Acute (3) Cardiac arrest Status: Acute (4) Elevated troponin Status: Acute (5) Heart murmur Status: Acute (6) NSTEMI (non-ST elevated myocardial infarction) Status: Acute (7) Pulmonary edema Status: Acute Physical Exam Vital Signs Last Vital Signs Documentation Date Time Temp Pulse Resp B/P (MAP) Pulse Ox O2 Delivery O2 Flow Rate FiO2 04/19/17 08:11 37.7 71 23 171/90 (117) 94 Room Air 04/19/17 03:48 2.0 Physical Exam Constitutional: Level of Distress: NAD Neck: pertinent finding (Normal JVP) Lungs: Respiratory effort: no dyspnea Auscultation: deminished air movement, decreased breath sounds, rales/ crackles on the right, pertinent finding (? Small effusions. ) Cardiovascular: Heart Auscultation: RRR, normal S1, normal S2, no rubs, II/ YOANA Peripheral Pulses: Radial Pulse: normal on the left, normal on the right Dorsalis Pedis Pulse: decreased on the left, decreased on the right Abdomen: Bowel Sounds: normal Inspection & Palpation: soft, non-distended, no masses Extremities: no cyanosis, no edema, no clubbing Assessment and Plan Assessment and Plan Status post April 17, 2017 out of hospital cardiac arrest, bystander CPR and one AED shock with return of spontaneous circulation Presume post arrest aspiration pneumonitis Acute on chronic renal dysfunction, resolved. Presumed ischemic cardiomyopathy with LVEF 35-40% Compensated systolic congestive heart failure signs and symptoms. Hypertension, hypertensive heart disease Moderate mitral regurgitation Chronic anemia RECOMMENDATIONS/PLAN: Increase beta-arnie therapy and oral nitrates Obtain AED download, considering initiation of oral amiodarone for the prevention of recurrent life-threatening ventricular arrhythmias CARDIOLOGY ATTENDING ADDENDUM: The patient was seen and personally examined. Agree with Rayray Hoover PA-C's findings and plans as documented above. Spoke to brother-in Law about Amio. +/- Wants to discuss with (POA). If they elect not to start amio then ok with d/c home. Laboratory Results Last 24 Hours Test 04/19/17 06:02 White Blood Count 6.77 K/uL Red Blood Count 3.45 M/uL Hemoglobin 10.2 g/dL Hematocrit 31.5 % Mean Corpuscular Volume 91.3 fL Mean Corpuscular Hemoglobin 29.6 pg Mean Corpuscular Hemoglobin Concent 32.4 g/dl Platelet Count 182 K/uL Mean Platelet Volume 10.4 fL Neutrophils (%) (Auto) 67.9 % Lymphocytes (%) (Auto) 21.1 % Monocytes (%) (Auto) 10.0 % Eosinophils (%) (Auto) 0.6 % Basophils (%) (Auto) 0.3 % Neutrophils # (Auto) 4.59 K/uL Lymphocytes # (Auto) 1.43 K/uL Monocytes # (Auto) 0.68 K/uL Eosinophils # (Auto) 0.04 K/uL Basophils # (Auto) 0.02 K/uL RDW Standard Deviation 49.1 fL RDW Coefficient of Variation 14.6 % Immature Granulocyte % (Auto) 0.1 % Immature Granulocyte # (Auto) 0.01 K/uL Sodium Level 146 mmol/L Potassium Level 4.4 mmol/L Chloride Level 112 mmol/L Carbon Dioxide Level 27 mmol/L Anion Gap 7.0 mmol/L Blood Urea Nitrogen 16 mg/dl Creatinine 1.30 mg/dl Est Creatinine Clear Calc Drug Dose 24.5 ml/min Estimated GFR () 47.5 Estimated GFR (Non- 41.0 BUN/Creatinine Ratio 12.4 Random Glucose 112 mg/dl Estimated Average Glucose 120 mg/dl Hemoglobin A1c 5.8 % Calcium Level 8.7 mg/dl
[2017-04-19] MEDS: AMPICILLIN/SULBACTAM SOD INJ 3,000 MG in SODIUM CHLORIDE 0.9% 100ML 100 ML IV SCH ×2 (10:02→21:28)
[2017-04-19 12:08] VITALS: BP 174/92; PULSE 68; TEMP 36.5; O2SAT 95
[2017-04-19 15:49] VITALS: BP 201/110; PULSE 70; TEMP 36.8; O2SAT 97
[2017-04-19] MEDS ORDERED: CLONIDINE HCL 0.1 MG TAB PO PRN (16:45)
--- NOTE | 2017-04-19 16:46 | Progress Note ---
Internal Med Progress Note Date of Service: Apr 19, 2017. Provider Documentation: SUBJECTIVE: patient resting comfortably patient is mentally challenged denies any pain had good breakfast had mild temp spike seems comfortable OBJECTIVE: Vital Signs-as noted below Exam: General-alert and awake. Not in distress ENT-Normal hearing Neck-no neck masses supple Lungs-cta b/l no wheezing no crackles present Heart-s1 and s2 heard regular rate and rhythm no murmurs Abdomen-soft bowel sounds present non tender no distension Extremities- no erythema no edema Neuro-alert and oriented moves extremities Lab data as noted below. ASSESSMENT & PLAN: 1. Cardiac arrest As per H and P:"Return of spontaneous circulation obtained after CPR/1 AED shock at home. Patient brought to the emergency room with stable vital signs and at baseline mentation as per family". Hx of ischemic cardiomyopathy echo ef 35-40%, moderate LVH, mild to moderate MR,Left atrium moderately dilated Currently asymptomatic lactic acid 2.5 at admission mostly from cardiac arrest- normalized now. Seen by cardiology and appreciate inputs. Monitor in tele Plan for loading with amiodarone as per cardiology stable 2. elevated troponin Troponin 2.5 NSTEMI From demand ischemia? mostly from cardiac arrest and shock asymptomatic currently 3. HTN elevated on hydralazine, Toprol xl, nitrates and lisinopril. nitrates and Toprol xl dose inbreed. clonidine prn. Will monitor. 4. Chronic systolic heart failure presumed ischemic cardiomyopathy (ejection fraction of 32% on 2D echo in 2016) .ON Toprol, hydralazine and nitrates.Lasix twice weekly which is on hold. Will monitor for volume overload. 5. aspiration pneumonitis post arrest, no sepsis On Unasyn. Will monitor. 6. Acute renal failure on chronic renal insufficiency. Presented with cr 1.7 Cr today 1.3. At baseline. will f/u labs. 7. Chronic anemia secondary to CKD, hemoglobin baseline at 10.3 8. History intellectual impairment 9. hyperglycemia rule out diabetes hba1c levels 5.8 DVT PROPHYLAXIS hep sub q DISPOSITION monitor in tele to be determined Vital Signs: Date Time Temp Pulse Resp B/P (MAP) Pulse Ox O2 Delivery O2 Flow Rate FiO2 04/19/17 15:49 36.8 70 18 201/110 (140) 97 Room Air 04/19/17 12:08 36.5 68 25 174/92 (119) 95 Room Air 04/19/17 08:11 37.7 71 23 171/90 (117) 94 Room Air 04/19/17 08:00 Nasal Cannula 2.0 04/19/17 04:00 Room Air 04/19/17 03:48 36.8 68 22 193/105 (134) 99 Nasal Cannula 2.0 04/19/17 00:00 36.7 73 22 197/103 (134) 96 Nasal Cannula 2.0 180/91 (120) 04/19/17 00:00 Room Air 04/18/17 20:00 Room Air 04/18/17 19:34 37.3 67 20 171/89 (116) 99 Nasal Cannula 2.0 04/18/17 18:39 72 18 168/97 (120) Lab Results: Results Past 24 Hours Test 04/19/17 06:02 Range/Units White Blood Count 6.77 4.8-10.8 K/uL Red Blood Count 3.45 4.2-5.4 M/uL Hemoglobin 10.2 12.0-16.0 g/dL Hematocrit 31.5 37-47 % Mean Corpuscular Volume 91.3 80-100 fL Mean Corpuscular Hemoglobin 29.6 25-34 pg Mean Corpuscular Hemoglobin Concent 32.4 32-36 g/dl Platelet Count 182 130-400 K/uL Mean Platelet Volume 10.4 7.4-10.4 fL Neutrophils (%) (Auto) 67.9 % Lymphocytes (%) (Auto) 21.1 % Monocytes (%) (Auto) 10.0 % Eosinophils (%) (Auto) 0.6 % Basophils (%) (Auto) 0.3 % Neutrophils # (Auto) 4.59 1.4-6.5 K/uL Lymphocytes # (Auto) 1.43 1.2-3.4 K/uL Monocytes # (Auto) 0.68 0.11-0.59 K/uL Eosinophils # (Auto) 0.04 0-0.5 K/uL Basophils # (Auto) 0.02 0-0.2 K/uL RDW Standard Deviation 49.1 36.4-46.3 fL RDW Coefficient of Variation 14.6 11.5-14.5 % Immature Granulocyte % (Auto) 0.1 % Immature Granulocyte # (Auto) 0.01 0.00-0.02 K/uL Sodium Level 146 136-145 mmol/L Potassium Level 4.4 3.5-5.1 mmol/L Chloride Level 112 98-107 mmol/L Carbon Dioxide Level 27 21-32 mmol/L Anion Gap 7.0 3-11 mmol/L Blood Urea Nitrogen 16 7-18 mg/dl Creatinine 1.30 0.60-1.20 mg/dl Est Creatinine Clear Calc Drug Dose 24.5 ml/min Estimated GFR () 47.5 Estimated GFR (Non- 41.0 BUN/Creatinine Ratio 12.4 10-20 Random Glucose 112 70-99 mg/dl Estimated Average Glucose 120 mg/dl Hemoglobin A1c 5.8 4.5-5.6 % Calcium Level 8.7 8.5-10.1 mg/dl
[2017-04-19] MEDS: ISOSORBIDE DINITRATE 20 MG TAB PO SCH (18:09)
[2017-04-19 20:43] VITALS: BP 159/81; PULSE 69; TEMP 36.8; O2SAT 97
[2017-04-19] MEDS: ATORVASTATIN 10 MG TAB PO SCH (21:28)
[2017-04-20 00:19] VITALS: BP 172/97; PULSE 68; TEMP 36.6; O2SAT 97
[2017-04-20 04:31] VITALS: BP 115/59; PULSE 61; TEMP 36.7; O2SAT 96
[2017-04-20] MEDS: HEPARIN SOD 5000 UNIT/0.5 ML CARP SQ SCH (06:07)
[2017-04-20 06:31] LABS: BASO % 0.3 %; BASO ABS # 0.02 K/uL (0-0.2); COMPLETE YES; EOS % 1.4 %; HEMATOCRIT 31.6 % (37-47); IG% 0.2 %; LYMPH % 27.8 %; LYMPH ABS # 1.64 K/uL (1.2-3.4); MEAN CELL VOLUME 91.1 fL (80-100); MEAN CORPUSCULAR HEMOGLOBIN 28.5 pg (25-34); MEAN CORPUSCULAR HGB CONC 31.3 g/dl (32-36); MONO % 9.8 %; NEUT % 60.5 %; PLATELET COUNT 180 K/uL (130-400); RED BLOOD COUNT 3.47 M/uL (4.2-5.4); WHITE BLOOD COUNT 5.89 K/uL (4.8-10.8)
[2017-04-20 07:02] LABS: BUN/CREATININE RATIO 13.5 (10-20); CALCIUM 8.5 mg/dl (8.5-10.1); CREATININE 1.3 mg/dl (0.60-1.20); POTASSIUM 4.4 mmol/L (3.5-5.1)
[2017-04-20 07:15] VITALS: BP 141/83; PULSE 59; TEMP 36.7; O2SAT 96
[2017-04-20] MEDS: HydrALAZINE 10 MG TAB PO SCH (07:28)
[2017-04-20] MEDS: ISOSORBIDE DINITRATE 20 MG TAB PO SCH ×2 (07:30→11:55)
[2017-04-20] MEDS: LISINOPRIL 10 MG TAB PO SCH (07:30)
[2017-04-20] MEDS: ASPIRIN 81 MG ECTAB PO SCH (07:30)
[2017-04-20 08:00] VITALS: O2SAT 96
[2017-04-20 08:34] LABS: ALKALINE PHOSPHATASE 46 U/L (45-117); ALT/SGPT 50 U/L (12-78); AST/SGOT 43 U/L (15-37)
[2017-04-20] MEDS ORDERED: METOPROLOL SUCC 25MG EXT REL TAB PO SCH (09:00)
[2017-04-20] MEDS ORDERED: LISINOPRIL 2.5 MG TAB PO SCH (09:00)
--- NOTE | 2017-04-20 09:56 | Cardiology Follow-Up ---
Subjective General Date of Service: Apr 20, 2017. Chief Complaint: Cardiac arrest Pt evaluation today including: conversation w/ patient, conversation w/ family , physical exam, chart review, lab review, review of studies, review of inpatient medication list History of Present Illness Patient seen and examined. Family at bedside; mother is anxious for patient to return home sooner than later. No issues. No chest pain, dyspnea, palpitations, or peripheral edema. Telemetry: Sinus in the 70's. No events. April 18, 2017 TTE Interpretation Summary ([facility], Dr. Brock): The left ventricle is normal in size. There is moderate concentric left ventricular hypertrophy. Ejection Fraction = 35-40%. The right ventricular systolic function is normal. The left atrium is moderately dilated. Right atrial size is normal. There is mild to moderate mitral regurgitation. There is trace tricuspid regurgitation. Allergies Coded Allergies: No Known Allergies (Unverified , 06/02/16) Social History Smoking Status: Never Smoker Hx Tobacco Use In Past Year?: No Hx Alcohol Use - Type And Amou: No Hx Substance Use - Type And Am: No Problem List Medical Problems: (1) Abnormal EKG Status: Acute (2) Aspiration pneumonitis Status: Acute (3) Cardiac arrest Status: Acute (4) Elevated troponin Status: Acute (5) Heart murmur Status: Acute (6) NSTEMI (non-ST elevated myocardial infarction) Status: Acute (7) Pulmonary edema Status: Acute Physical Exam Vital Signs Last Vital Signs Documentation Date Time Temp Pulse Resp B/P (MAP) Pulse Ox O2 Delivery O2 Flow Rate FiO2 04/20/17 08:00 96 Room Air 2.0 04/20/17 07:15 36.7 59 20 141/83 (102) Physical Exam Constitutional: Level of Distress: NAD Neck: pertinent finding (Normal JVP) Lungs: Respiratory effort: no dyspnea Auscultation: deminished air movement, decreased breath sounds, rales/ crackles on the right, pertinent finding (poor effort hinders evaluation) Cardiovascular: Heart Auscultation: RRR, normal S1, normal S2, no rubs, II/ YOANA Peripheral Pulses: Radial Pulse: normal on the left, normal on the right Dorsalis Pedis Pulse: decreased on the left, decreased on the right Abdomen: Bowel Sounds: normal Inspection & Palpation: soft, non-distended, no masses Extremities: no cyanosis, no edema, no clubbing Assessment and Plan Assessment and Plan Status post April 17, 2017 out of hospital cardiac arrest, bystander CPR and AED shock with return of spontaneous circulation, without overt neurological change per patient report. Post arrest aspiration pneumonitis. Presumed ischemic cardiomyopathy with LVEF 35-40% Acute on chronic renal dysfunction, resolved. Compensated systolic congestive heart failure signs and symptoms. Hypertension, hypertensive heart disease Moderate mitral regurgitation Chronic anemia RECOMMENDATIONS/PLAN: Obtain AED download. Use of Amiodarone to prevent recurrence of the presumed life-threatening ventricular arrhythmia discussed with family. Toprol XL and Isordil increased this admission. Secondary prevention ICD implantation discussed; declined by the patient's mother. CARDIOLOGY ATTENDING ADDENDUM: The patient was seen and personally examined. Agree with Rayray Hoover PA-C's findings and plans as documented above. I spoke with the POA and after a long discussion and consideration they would just like to take Tressa home with out starting amiodarone. They understand the possible consequences including cardiac arrest and . I do not feel this to be a bad decision. Laboratory Results Last 24 Hours Test 04/20/17 06:11 04/20/17 07:53 White Blood Count 5.89 K/uL Red Blood Count 3.47 M/uL Hemoglobin 9.9 g/dL Hematocrit 31.6 % Mean Corpuscular Volume 91.1 fL Mean Corpuscular Hemoglobin 28.5 pg Mean Corpuscular Hemoglobin Concent 31.3 g/dl Platelet Count 180 K/uL Mean Platelet Volume 10.0 fL Neutrophils (%) (Auto) 60.5 % Lymphocytes (%) (Auto) 27.8 % Monocytes (%) (Auto) 9.8 % Eosinophils (%) (Auto) 1.4 % Basophils (%) (Auto) 0.3 % Neutrophils # (Auto) 3.56 K/uL Lymphocytes # (Auto) 1.64 K/uL Monocytes # (Auto) 0.58 K/uL Eosinophils # (Auto) 0.08 K/uL Basophils # (Auto) 0.02 K/uL RDW Standard Deviation 47.6 fL RDW Coefficient of Variation 14.4 % Immature Granulocyte % (Auto) 0.2 % Immature Granulocyte # (Auto) 0.01 K/uL Sodium Level 144 mmol/L Potassium Level 4.4 mmol/L Chloride Level 111 mmol/L Carbon Dioxide Level 27 mmol/L Anion Gap 6.0 mmol/L Blood Urea Nitrogen 18 mg/dl Creatinine 1.30 mg/dl Est Creatinine Clear Calc Drug Dose 22.4 ml/min Estimated GFR () 47.5 Estimated GFR (Non- 41.0 BUN/Creatinine Ratio 13.5 Random Glucose 104 mg/dl Calcium Level 8.5 mg/dl Total Bilirubin 0.2 mg/dl Direct Bilirubin < 0.1 mg/dl Aspartate Amino Transf (AST/SGOT) 43 U/L Alanine Aminotransferase (ALT/SGPT) 50 U/L Alkaline Phosphatase 46 U/L Total Protein 6.5 gm/dl Albumin 2.5 gm/dl Thyroid Stimulating Hormone (TSH) 2.790 uIu/ml
[2017-04-20] MEDS: AMPICILLIN/SULBACTAM SOD INJ 3,000 MG in SODIUM CHLORIDE 0.9% 100ML 100 ML IV SCH (10:19)
[2017-04-20 12:00] VITALS: PULSE 78; O2SAT 96
[2017-04-20] MEDS ORDERED: ISR20 PO (12:05)
[2017-04-20] MEDS ORDERED: TPRSR25 PO (12:05)
[2017-04-20] MEDS ORDERED: AMOX875T PO (12:05)
[2017-04-20] MEDS ORDERED: LCTX PO (12:05)
--- NOTE | 2017-04-20 12:08 | Discharge Instructions ---
Discharge Instructions Date of Service Apr 20, 2017. Admission Reason for Admission: Cardiac Arrest Discharge Discharge Diagnosis / Problem: cardiac arrest. Discharge Goals Goal(s): Decrease discomfort Activity Recommendations Activity Limitations: resume your previous activity . Instructions / Follow-Up Instructions / Follow-Up FOLLOWUP WITH FAMILY DOCTOR ON April AT 11:05AM FOLLOWUP WITH CARDIOLOGY IN 1- 2 WEEKS. BLOOD PRESSURE CHECK UP WITH FAMILY DOCTOR. Current Hospital Diet Patient's current hospital diet: AHA Diet (Heart Healthy) Discharge Diet Recommended Diet: AHA Diet (Heart Healthy) Pending Studies Studies pending at discharge: no Laboratory Results Hemoglobin A1c Test 04/19/17 06:02 Range/Units Estimated Average Glucose 120 mg/dl Hemoglobin A1c 5.8 H 4.5-5.6 % Medical Emergencies . Who to Call and When: Medical Emergencies: If at any time you feel your situation is an emergency, please call 911 immediately. . Non-Emergent Contact Non-Emergency issues call your: Primary Care Provider . . "Provider Documentation" section prepared by Carlitos Hernandez. . VTE Core Measure Inpt VTE Proph given/why not?: Unfractionated heparin SQ
[2017-04-20] MEDS ORDERED: AMOX500T PO (12:12)
[2017-04-20 12:14] VITALS: BP 141/83; PULSE 59; TEMP 36.7; O2SAT 96
--- NOTE | 2017-04-20 19:16 | Progress Note ---
Internal Med Progress Note Date of Service: Apr 20, 2017. Provider Documentation: SUBJECTIVE: patient resting comfortably patient is mentally challenged says some abdominal discomfort patient sister who is senior care provider in room and wants to take her sister back home today OBJECTIVE: Vital Signs-as noted below Exam: General-alert and awake. Not in distress ENT-Normal hearing Neck-no neck masses supple Lungs-cta b/l no wheezing no crackles present Heart-s1 and s2 heard regular rate and rhythm no murmurs Abdomen-soft bowel sounds present non tender no distension Extremities- no erythema no edema Neuro-alert and awake moves extremities Lab data as noted below. ASSESSMENT & PLAN: 1. Cardiac arrest As per H and P:"Return of spontaneous circulation obtained after CPR/1 AED shock at home. Patient brought to the emergency room with stable vital signs and at baseline mentation as per family". Hx of ischemic cardiomyopathy echo ef 35-40%, moderate LVH, mild to moderate MR,Left atrium moderately dilated Currently asymptomatic lactic acid 2.5 at admission mostly from cardiac arrest- normalized now. Seen by cardiology and appreciate inputs. Monitor in tele family doesn't want to be started on amiodarone or icd placement discharged home 2. elevated troponin Troponin 2.5 NSTEMI From demand ischemia? mostly from cardiac arrest and shock asymptomatic currently 3. HTN elevated on hydralazine, Toprol xl, nitrates and lisinopril. nitrates and Toprol xl dose increased clonidine prn. Will monitor. f/u with pcp and cardiology 4. Chronic systolic heart failure presumed ischemic cardiomyopathy (ejection fraction of 32% on 2D echo in 2016) .ON Toprol, hydralazine and nitrates.Lasix twice weekly . Will monitor for volume overload. 5. aspiration pneumonitis post arrest, no sepsis On Unasyn. Will monitor.d/c on po augmentin 6. Acute renal failure on chronic renal insufficiency. Presented with cr 1.7 Cr today 1.3. At baseline. will f/u labs. 7. Chronic anemia secondary to CKD, hemoglobin baseline at 10.3 8. History intellectual impairment 9. hyperglycemia rule out diabetes hba1c levels 5.8 discharged home Vital Signs: Date Time Temp Pulse Resp B/P (MAP) Pulse Ox O2 Delivery O2 Flow Rate FiO2 04/20/17 12:14 36.7 59 20 96 Room Air 04/20/17 12:00 78 04/20/17 12:00 96 Room Air 2.0 04/20/17 08:00 96 Room Air 2.0 04/20/17 07:15 36.7 59 20 141/83 (102) 96 Room Air 04/20/17 04:31 36.7 61 18 115/59 (77) 96 Room Air 04/20/17 04:00 Room Air 04/20/17 00:19 36.6 68 20 172/97 (122) 97 Room Air 04/20/17 00:00 Room Air 04/19/17 20:43 36.8 69 20 159/81 (107) 97 Room Air 04/19/17 20:00 Room Air Lab Results: Results Past 24 Hours Test 04/20/17 06:11 04/20/17 07:53 Range/Units White Blood Count 5.89 4.8-10.8 K/uL Red Blood Count 3.47 4.2-5.4 M/uL Hemoglobin 9.9 12.0-16.0 g/dL Hematocrit 31.6 37-47 % Mean Corpuscular Volume 91.1 80-100 fL Mean Corpuscular Hemoglobin 28.5 25-34 pg Mean Corpuscular Hemoglobin Concent 31.3 32-36 g/dl Platelet Count 180 130-400 K/uL Mean Platelet Volume 10.0 7.4-10.4 fL Neutrophils (%) (Auto) 60.5 % Lymphocytes (%) (Auto) 27.8 % Monocytes (%) (Auto) 9.8 % Eosinophils (%) (Auto) 1.4 % Basophils (%) (Auto) 0.3 % Neutrophils # (Auto) 3.56 1.4-6.5 K/uL Lymphocytes # (Auto) 1.64 1.2-3.4 K/uL Monocytes # (Auto) 0.58 0.11-0.59 K/uL Eosinophils # (Auto) 0.08 0-0.5 K/uL Basophils # (Auto) 0.02 0-0.2 K/uL RDW Standard Deviation 47.6 36.4-46.3 fL RDW Coefficient of Variation 14.4 11.5-14.5 % Immature Granulocyte % (Auto) 0.2 % Immature Granulocyte # (Auto) 0.01 0.00-0.02 K/uL Sodium Level 144 136-145 mmol/L Potassium Level 4.4 3.5-5.1 mmol/L Chloride Level 111 98-107 mmol/L Carbon Dioxide Level 27 21-32 mmol/L Anion Gap 6.0 3-11 mmol/L Blood Urea Nitrogen 18 7-18 mg/dl Creatinine 1.30 0.60-1.20 mg/dl Est Creatinine Clear Calc Drug Dose 22.4 ml/min Estimated GFR () 47.5 Estimated GFR (Non- 41.0 BUN/Creatinine Ratio 13.5 10-20 Random Glucose 104 70-99 mg/dl Calcium Level 8.5 8.5-10.1 mg/dl Total Bilirubin 0.2 0.2-1 mg/dl Direct Bilirubin < 0.1 0-0.2 mg/dl Aspartate Amino Transf (AST/SGOT) 43 15-37 U/L Alanine Aminotransferase (ALT/SGPT) 50 12-78 U/L Alkaline Phosphatase 46 45-117 U/L Total Protein 6.5 6.4-8.2 gm/dl Albumin 2.5 3.4-5.0 gm/dl Thyroid Stimulating Hormone (TSH) 2.790 0.300-4.500 uIu/ml
--- NOTE | 2017-04-20 19:19 | Discharge Summary ---
Discharge Summary Date of Service Apr 20, 2017. Discharge Summary Admission Date: Apr 17, 2017 at 22:20 Discharge Date: Apr 20, 2017 Discharge Disposition: Home Principal Diagnosis: CARDIAC ARREST ELEVATION OF TROPONIN Secondary Diagnoses/Problems: chronic systolic heart failure secondary to presumed ischemic cardiomyopathy, small pericardial effusion per records, hypertension, hyperlipidemia, chronic renal disease (baseline creatinine of 1.4) , chronic anemia (baseline hemoglobin of 10-11 Procedures: cxr: Nonspecific bibasal airspace opacities. Clinical correlation in regards to a pneumonitis is recommended. Clinical and radiographic follow-up is recommended CT ABD/PELVIS: 1. Small bilateral pleural effusions and bibasal interstitial opacities 2. Hiatal hernia 3. No evidence of bowel obstruction. No evidence of free air. Fluid and formed stool within the rectosigmoid 4. No evidence of acute diverticulitis. No evidence of acute appendicitis 5. Calcified fibroid uterus 6. Bilateral renal calcifications, possibly parenchymal. CT HEAD: Stable left hemispheric porencephalic cyst. No acute intracranial findings. ECHO: * The left ventricle is normal in size. * There is moderate concentric left ventricular hypertrophy. * Ejection Fraction = 35-40%. * The right ventricular systolic function is normal. * The left atrium is moderately dilated. * Right atrial size is normal. * There is mild to moderate mitral regurgitation. * There is trace tricuspid regurgitation. Consultations: CARDIOLOGY Medication Reconciliation New Medications: Amoxicillin & Pot Clavulanate (Augmentin 500MG) 1 Tab Tab 500 MG PO BID for 4 Days, TAB Lactobacillus Acidophilus (Lactinex) Tab 1 TAB PO BID, #10 TAB Isosorbide Dinitrate (Isordil) 20 Mg Tab 20 MG PO 0700,1200,1700 for 30 Days, TAB 1 Refill Metoprolol Succinate (Metoprolol Succinate ER) 25 Mg Tabcr 37.5 MG PO DAILY for 30 Days, 1 Refill Continued Medications: Aspirin (Aspirin Ec) 81 Mg Tab 81 MG PO DAILY Atorvastatin (Lipitor) 10 Mg Tab 10 MG PO HS, TAB Furosemide (Lasix) 20 Mg Tab 20 MG PO 2XWK, TAB take on mon & fri Hydralazine Hcl (Apresoline) 10 Mg Tab 10 MG PO TID, TAB Lisinopril (Prinivil) 10 Mg Tab 10 MG PO DAILY, TAB Nitroglycerin (Nitrostat) 0.4 Mg Sub 0.4 MG UT PRN, BTL Discontinued Medications: Isosorbide Dinitrate (Isordil) 10 Mg Tab 10 MG PO TID, TAB Metoprolol Succinate (Toprol Xl) 25 Mg Tabcr 25 MG PO DAILY, #30 TAB Admission Information HPI (per Admitting provider): History was obtained from ER MD, family, and records. Unable to obtain history from the patient secondary to intellectual impairment. Medical history is significant for chronic systolic heart failure secondary to presumed ischemic cardiomyopathy, small pericardial effusion per records, hypertension, hyperlipidemia, chronic renal disease (baseline creatinine of 1.4) , chronic anemia (baseline hemoglobin of 10-11). Recent confinement last February 2016 for decompensated heart failure. Last followup with [facility] last month. Stable cardiac signs and symptoms as per outpatient note. A 2D echo in August 2016 showed [id number] LV systolic dysfunction, large sized apical, anteroseptal, anterior, posterior, lateral wall abnormality with hypokinetic segments. Calculated EF was 32%. LAD, mild MR, small pericardial effusion, no pulmonary hypertension. This afternoon, the patient's family heard a noise coming from patient's room. PX was found a room closet, unresponsive. Cardiac compressions were initiated by [id number]. When police arrived, AED was applied to patient. Shock advised and delivered. A few minutes later, the patient woke up. Good pulse and good blood pressure as per family. Patient was breathing. Normal sinus rhythm on initial EKG done by EMS. Patient later was noted to have vomited - cough, gurgly breathing later noted. Patient was brought to the Emergency Room. Unasyn for possible aspiration pneumonitis. Physical Exam (per Admitting): VITAL SIGNS: Blood pressure was noted to be 150/78 pulse 65, RR 21, temperature 36.9 and sats 100 on 4 liters. GENERAL: Noted to be comfortable, in no respiratory distress, coherent. Gurgly respiration SKIN: Pallor. HEENT: Pale palpebral conjunctivae. Dry mucosa. NECK: No JVD. Supple. CHEST: Decreased effort. HEART: Diminished S1, S2. ABDOMEN: Soft. EXTREMITIES: No edema. No tenderness on exam. NEUROLOGIC: Coherent. Hospital Course 1. Cardiac arrest As per H and P:"Return of spontaneous circulation obtained after CPR/1 AED shock at home. Patient brought to the emergency room with stable vital signs and at baseline mentation as per family". Hx of ischemic cardiomyopathy echo ef 35-40%, moderate LVH, mild to moderate MR,Left atrium moderately dilated Currently asymptomatic lactic acid 2.5 at admission mostly from cardiac arrest- normalized now. Seen by cardiology and appreciate inputs. Monitor in tele family doesn't want to be started on amiodarone or icd placement discharged home 2. elevated troponin Troponin 2.5 NSTEMI From demand ischemia? mostly from cardiac arrest and shock asymptomatic currently 3. HTN elevated on hydralazine, Toprol xl, nitrates and lisinopril. nitrates and Toprol xl dose increased clonidine prn. Will monitor. f/u with pcp and cardiology 4. Chronic systolic heart failure presumed ischemic cardiomyopathy (ejection fraction of 32% on 2D echo in 2016) .ON Toprol, hydralazine and nitrates.Lasix twice weekly . Will monitor for volume overload. 5. aspiration pneumonitis post arrest, no sepsis On Unasyn. Will monitor.d/c on po augmentin 6. Acute renal failure on chronic renal insufficiency. Presented with cr 1.7 Cr today 1.3. At baseline. will f/u labs. 7. Chronic anemia secondary to CKD, hemoglobin baseline at 10.3 8. History intellectual impairment 9. hyperglycemia rule out diabetes hba1c levels 5.8 discharged home Total time spent on discharge = 35MINUTES This includes examination of the patient, discharge planning, medication reconciliation, and communication with other providers. Discharge Instructions Discharge Instructions Date of Service Apr 20, 2017. Admission Reason for Admission: Cardiac Arrest Discharge Discharge Diagnosis / Problem: cardiac arrest. Discharge Goals Goal(s): Decrease discomfort Activity Recommendations Activity Limitations: resume your previous activity . Instructions / Follow-Up Instructions / Follow-Up FOLLOWUP WITH FAMILY DOCTOR ON April AT 11:05AM FOLLOWUP WITH CARDIOLOGY IN 1- 2 WEEKS. BLOOD PRESSURE CHECK UP WITH FAMILY DOCTOR. Current Hospital Diet Patient's current hospital diet: AHA Diet (Heart Healthy) Discharge Diet Recommended Diet: AHA Diet (Heart Healthy) Pending Studies Studies pending at discharge: no Laboratory Results Hemoglobin A1c Test 04/19/17 06:02 Range/Units Estimated Average Glucose 120 mg/dl Hemoglobin A1c 5.8 H 4.5-5.6 % Medical Emergencies . Who to Call and When: Medical Emergencies: If at any time you feel your situation is an emergency, please call 911 immediately. . Non-Emergent Contact Non-Emergency issues call your: Primary Care Provider . . "Provider Documentation" section prepared by Carlitos Hernandez. . VTE Core Measure Inpt VTE Proph given/why not?: Unfractionated heparin SQ
--- NOTE | 2017-04-21 15:07 | EDITING REQUIRED CODING QUERY ---
CODING QUERY To promote full compliance with coding requirements relating to patient care, provider participation is requested in all cases of kiln repairer uncertainty. Please assist us with the question(s) below: Coding Question(s): Please document the etiology of the Cardiac Arrest if known/suspected. Thanks for your help! - Cesar Somers [facility] Physician's Response(s): Mostly from underlying cardiomyopathy Principal Diagnosis: "_that condition established after study, to be chiefly responsible for occasioning the admission of the patient to the hospital for care." Co-Existing Principal Diagnosis: "_when two or more diagnoses equally meet the criteria for principal diagnosis as determined by the circumstances of admission, diagnostic work up, and/or therapy provided, and the Alphabetic Index, Tabular List, or another coding guideline does not provide sequencing direction, any one of the diagnoses may be sequenced first." "When the physician has documented what appears to be a current diagnosis in the body of the record, but has not included the diagnosis in the final diagnostic statement, the physician should be asked whether the diagnosis should be added." ([facility] 2 QTR90. p3-4)
--- NOTE | 2017-04-21 15:13 | EDITING REQUIRED CODING QUERY ---
CODING QUERY To promote full compliance with coding requirements relating to patient care, provider participation is requested in all cases of medical records coder uncertainty. Please assist us with the question(s) below: Coding Question(s): Discharge Summary states elevated Troponin / NSTEMI. Please check below the diagnoses that you treated. Thank you. Cesar Somers [facility] Physician's Response(s): Patient sustained a NSTEMI ___x____ Patient was treated for Demand Ischemia resulting from cardiac arrest & shock Cannot clinically correlate if patient was treated for NSTEMI and/or Demand Ischemia Other: Please document: Principal Diagnosis: "_that condition established after study, to be chiefly responsible for occasioning the admission of the patient to the hospital for care." Co-Existing Principal Diagnosis: "_when two or more diagnoses equally meet the criteria for principal diagnosis as determined by the circumstances of admission, diagnostic work up, and/or therapy provided, and the Alphabetic Index, Tabular List, or another coding guideline does not provide sequencing direction, any one of the diagnoses may be sequenced first." "When the physician has documented what appears to be a current diagnosis in the body of the record, but has not included the diagnosis in the final diagnostic statement, the physician should be asked whether the diagnosis should be added." ([facility] 2 QTR90. p3-4)
== END 2017-04-20 12:57 | disposition home or self-care (01) | DRG 280 ==
LOC: EDBD 19:57 → C.EDB 19:58 → C.2E 22:20 → ENRESERV 22:24 → C.2E 22:49
PROVIDERS: ADMIT Internal Medicine; ATTEND Internal Medicine
DX: I21.4 Non-ST elevation (NSTEMI) myocardial infarction (principal); I46.9 Cardiac arrest, cause unspecified; J69.0 Pneumonitis due to inhalation of food and vomit; I50.22 Chronic systolic (congestive) heart failure; I13.0 Hypertensive heart and chronic kidney disease with heart failure and stage 1 through stage 4 chronic kidney disease, or unspecified chronic kidney disease; N17.9 Acute kidney failure, unspecified; I31.3 Pericardial effusion (noninflammatory); I24.8 Other forms of acute ischemic heart disease; D64.9 Anemia, unspecified; I50.9 Heart failure, unspecified; E78.5 Hyperlipidemia, unspecified; F79 Unspecified intellectual disabilities; I25.5 Ischemic cardiomyopathy; N18.3 Chronic kidney disease, stage 3 (moderate)

== ENCOUNTER 2017-05-03 13:28 | Emergency (ER) | payer OTHER ==
[~2017-05-03] VITALS: Ht 142.2 cm; Wt 46.9 kg
[~2017-05-03 13:28] MED LIST changes: -APR10 PO; -ASPEC81 PO; +ASPI81TA28 PO; +ATOR10TA88 PO; +FURO-85 PO; +HYDR-4715 PO; -ISR10 PO; +ISR20 PO; +LCTX PO; +LISI10TA PO; -LPT10 PO; -LSX20 PO; +NITR0.4S UT; -NTRSLP4 SL
[2017-05-03 13:39] VITALS: TEMP 36.6; O2SAT 95; Ht 142.2 cm; Wt 46.9 kg
[2017-05-03] MEDS ORDERED: SODIUM CHLORIDE 0.9% 1000ML 1,000 ML IV STA (13:51)
[2017-05-03] MEDS ORDERED: ONDANSETRON INJ 2 MG/ML 2 ML VIAL IV STA (13:51)
--- NOTE | 2017-05-03 14:08 | EMERGENCY ROOM VISIT NOTE ---
History Report prepared by Bernardo: Shane Li Under the Supervision of: Dr. Alek Gutierrez D.O. First contact with patient: 13:48 Chief Complaint: ALTERED MENTAL STATUS Stated Complaint: AMS History of Present Illness The patient is a 72 year old female who presents to the Emergency Room with an episode of unresponsiveness that occurred prior to arrival today. Per the patient's family, the patient went unresponsive earlier this month, and ended up going into cardiac arrest. The patient was resuscitated and was shocked. The patient's doctor noted that the patient's heart had no further damage done after the cardiac arrest. Prior to arrival today, the patient had an episode of unresponsiveness which was witnessed by the patient's caregiver. The patient's family says that the patient's caregiver noted that the patient fell down when eating, and her face went down. The patient opened her eyes up twice, but was in a daze and unresponsive. The patient's caregiver then called an ambulance. It is unknown whether the patient's unresponsive episode was similar to the patient's prior episode. The patient had CHF 2 years ago, and was told by her doctor that there was no further damage done to her heart. The patient denies any chest pain or shortness of breath. Per the patient's family, the patient has not had any seizures since she was a little kid, and is not on any medications for seizures. She also has no history of an irregular heartbeat. The patient had a CT scan of her head when she was here 2 weeks ago for the cardiac arrest. History limited secondary to patient's mental status. Source of History: patient, family History Limited By: other (mental status) Onset: Prior to arrival today Position: other (global - unresponsive) Timing: other (episode) Associated Symptoms: No chest pain, No SOB Note: Associated symptoms: Face went down, opened up eyes twice, was in a daze and unresponsive. Review of Systems ROS limited secondary to patient's mental status. Past Medical & Surgical Medical Problems: (1) Acute exacerbation of CHF (congestive heart failure) (2) CHF (congestive heart failure) (3) CHF (congestive heart failure) (4) Chronic kidney disease (CKD), stage III (moderate) (5) Chronic left ventricular systolic dysfunction (6) Dyslipidemia (7) HTN (hypertension) (8) Intellectual disability Family History Cancer Diabetes mellitus FH: pneumonia FH: prostate cancer Hypertension Kidney disease Kidney stones Seizures Social History Smoking Status: Never Smoker Drug Use: none Marital Status: single Housing Status: lives with family Occupation Status: unemployed Current/Historical Medications Scheduled Aspirin (Aspirin Ec), 81 MG PO DAILY Atorvastatin (Lipitor), 10 MG PO HS Furosemide (Lasix), 20 MG PO 2XWK Hydralazine Hcl (Apresoline), 10 MG PO TID Isosorbide Dinitrate (Isordil), 20 MG PO 0700,1200,1700 Lactobacillus Acidophilus (Lactinex), 1 TAB PO BID Lisinopril (Prinivil), 10 MG PO DAILY Metoprolol Succinate (Metoprolol Succinate ER), 37.5 MG PO DAILY Nitroglycerin (Nitrostat), 0.4 MG UT PRN Allergies Coded Allergies: No Known Allergies (Unverified , 06/02/16) Physical Exam Vital Signs Date Time Temp Pulse Resp B/P (MAP) Pulse Ox O2 Delivery O2 Flow Rate FiO2 05/03/17 17:05 67 16 173/86 96 05/03/17 15:10 57 16 151/69 96 Room Air 53 178/85 05/03/17 13:41 60 05/03/17 13:39 95 Room Air 05/03/17 13:39 36.6 69 16 136/67 95 Room Air Physical Exam GENERAL: Patient is awake, alert, non-anxious appearing and appears comfortable. Follows commands well. EYES: The conjunctivae are clear. The pupils are round and reactive. EARS, NOSE, MOUTH AND THROAT: The nose is without any evidence of any deformity. Mucous membranes are moist tongue is midline NECK: The neck is nontender and supple. RESPIRATORY: Normal respiratory effort is noted there is no evidence of wheezing rhonchi or rales CARDIOVASCULAR: Regular rate and rhythm noted there no murmurs rubs or gallops normal S1 normal S2 GASTROINTESTINAL: The abdomen is soft. Bowel sounds are present in all quadrants. Abdomen is nontender MUSCULOSKELETAL/EXTREMITIES: There is no evidence of gross deformity full range of motion is noted in the hips and shoulders SKIN: Trace pedal edema bilaterally. NEUROLOGIC: Patient is at baseline according to family members. Medical Decision & Procedures ER Provider Diagnostic Interpretation: Radiology results as stated below per my review and radiologist interpretation: CT SCAN OF THE BRAIN WITHOUT IV CONTRAST CLINICAL HISTORY: Change in mental status. Weakness. COMPARISON STUDY: CT of the brain dated 04/17/2017. TECHNIQUE: Unenhanced axial CT scan of the brain is performed from the vertex to the skull base. CT DOSE: 691.05 mGy.cm FINDINGS: Brain parenchyma: Left hemispheric encephalomalacia with ex vacuo dilatation of the left lateral ventricle is similar to previous. There are age-related involutional changes noting mild subcortical and periventricular microangiopathic change. A chronic lacunar infarct is noted in the left cerebellar hemisphere. There is no hemorrhage, mass effect, or evidence of acute territorial ischemia by CT criteria. Carrillo-white matter is preserved. No extra-axial fluid collection is seen. Ventricles, sulci, cisterns: Prominent secondary to involutional change. See above. Intracranial vasculature: There is atherosclerotic calcification of the cavernous carotid and vertebral arteries. Calvarium: Unremarkable. Sinuses and mastoids: Trace mucosal thickening is seen in the left maxillary antrum. The remaining visualized paranasal sinuses are clear. The mastoid air cells are well pneumatized. Orbits: The bony orbits are grossly intact. IMPRESSION: Senescent and chronic changes as above. There is no hemorrhage, mass effect, or evidence of acute territorial ischemia by CT criteria. Electronically signed by: Jai Gonzalez M.D. 05/03/2017 3:06 PM Dictated Date/Time: 05/03/2017 3:00 PM CHEST ONE VIEW PORTABLE HISTORY: 72 years-old Female EVALUATE ALTERED MENTAL STATUS/WEAKNESS COMPARISON: Chest radiograph 04/17/2017 TECHNIQUE: Portable upright AP view of the chest FINDINGS: Cardiac silhouette is again mildly enlarged. There is atherosclerosis of the aorta. There is mild biapical pleural parenchymal scarring. There is improved aeration of the bilateral lung bases from comparison study. No pneumothorax, new focal airspace consolidation or overt pulmonary edema. The bones appear to be grossly intact. IMPRESSION: No acute cardiopulmonary process. There is resolution of the previously described bibasilar airspace opacities. The above report was generated using voice recognition software. It may contain grammatical, syntax or spelling errors. Electronically signed by: Yrn Ferrera M.D. 05/03/2017 2:19 PM Dictated Date/Time: 05/03/2017 2:18 PM Laboratory Results 05/03/17 15:25 Red Blood Count 3.11, Mean Corpuscular Volume 91.3, Mean Corpuscular Hemoglobin 29.9, Mean Corpuscular Hemoglobin Concent 32.7, Mean Platelet Volume 10.1, Neutrophils (%) (Auto) 51.5, Lymphocytes (%) (Auto) 36.3, Monocytes (%) (Auto) 9.2, Eosinophils (%) (Auto) 2.2, Basophils (%) (Auto) 0.6, Neutrophils # (Auto) 2.58, Lymphocytes # (Auto) 1.82, Monocytes # (Auto) 0.46, Eosinophils # (Auto) 0.11, Basophils # (Auto) 0.03 05/03/17 14:16 Test 05/03/17 14:16 05/03/17 14:17 05/03/17 15:25 Prothrombin Time 10.4 SECONDS (9.0-12.0) Prothromb Time International Ratio 1.0 (0.9-1.1) Activated Partial Thromboplast Time 21.6 SECONDS (21.0-31.0) Partial Thromboplastin Ratio 0.8 Anion Gap 6.0 mmol/L (3-11) Est Creatinine Clear Calc Drug Dose 22.9 ml/min Estimated GFR () 43.1 Estimated GFR (Non- 37.2 BUN/Creatinine Ratio 16.6 (10-20) Calcium Level 8.4 mg/dl (8.5-10.1) Phosphorus Level 3.4 mg/dl (2.5-4.9) Magnesium Level 2.2 mg/dl (1.8-2.4) Total Bilirubin 0.1 mg/dl (0.2-1) Direct Bilirubin mg/dl (0-0.2) Aspartate Amino Transf (AST/SGOT) 27 U/L (15-37) Alanine Aminotransferase (ALT/SGPT) 17 U/L (12-78) Alkaline Phosphatase 121 U/L (45-117) Total Creatine Kinase 80 U/L (26-192) Creatine Kinase MB 2.5 ng/ml (0.5-3.6) Creatine Kinase MB Ratio 3.1 (0-3.0) Troponin I 0.020 ng/ml (0-0.045) Total Protein 7.7 gm/dl (6.4-8.2) Albumin 3.0 gm/dl (3.4-5.0) Thyroid Stimulating Hormone (TSH) 1.400 uIu/ml (0.300-4.500) Chemistry Specimen Hemolysis Bedside Glucose 84 mg/dl (70-90) White Blood Count 5.01 K/uL (4.8-10.8) Red Blood Count 3.11 M/uL (4.2-5.4) Hemoglobin 9.3 g/dL (12.0-16.0) Hematocrit 28.4 % (37-47) Mean Corpuscular Volume 91.3 fL (80-100) Mean Corpuscular Hemoglobin 29.9 pg (25-34) Mean Corpuscular Hemoglobin Concent 32.7 g/dl (32-36) Platelet Count 248 K/uL (130-400) Mean Platelet Volume 10.1 fL (7.4-10.4) Neutrophils (%) (Auto) 51.5 % Lymphocytes (%) (Auto) 36.3 % Monocytes (%) (Auto) 9.2 % Eosinophils (%) (Auto) 2.2 % Basophils (%) (Auto) 0.6 % Neutrophils # (Auto) 2.58 K/uL (1.4-6.5) Lymphocytes # (Auto) 1.82 K/uL (1.2-3.4) Monocytes # (Auto) 0.46 K/uL (0.11-0.59) Eosinophils # (Auto) 0.11 K/uL (0-0.5) Basophils # (Auto) 0.03 K/uL (0-0.2) RDW Standard Deviation 48.0 fL (36.4-46.3) RDW Coefficient of Variation 14.5 % (11.5-14.5) Immature Granulocyte % (Auto) 0.2 % Immature Granulocyte # (Auto) 0.01 K/uL (0.00-0.02) Poikilocytosis PRESENT Laboratory results per my review. Medications Administered Medications (Trade) Dose Ordered Sig/Kaila Route Start Time Stop Time Status Last Admin Dose Admin Sodium Chloride 1,000 ml @ 999 mls/hr Q1H1M STAT IV 05/03/17 13:51 05/03/17 14:51 DC 05/03/17 14:18 999 MLS/HR Ondansetron HCl (Zofran Inj) 4 mg NOW STAT IV 05/03/17 13:51 05/03/17 13:53 DC 05/03/17 14:17 4 MG ECG Indication: syncope Rate (beats per minute): 61 Rhythm: normal sinus Findings: T-wave inversion (Lateral), other (LVH noted by voltage criteria) Change: no significant change (from April 18 of this year) ED Course 1349: The patient was evaluated in room B8. A limited history and physical examination were performed. 1351: Ordered Zofran Inj 4 mg IV, NSS 1000 ml @ 999 mls/hr IV. 1600: I reevaluated the patient, and the patient's family do not want the patient to stay in the hospital. I told them that the patient most likely is having problems with ventricular tachycardia, but they do not want the patient to stay. 1623: I reevaluated the patient and restated to family the treatment options for the patient. The patient's family verbally expressed understanding and agreement of the treatment plan. The patient will be discharged. Medical Decision Prior records/ancillary studies reviewed. Triage Nursing notes reviewed. Additional history obtained from family members. The patient's history was concerning for syncope. Differential diagnosis: Etiologies such as vasovagal event, infection, hypoglycemia, electrolyte abnormalities, cardiac sources, intracerebral event, toxicologic, neurologic, as well as others were entertained. The patient is a 72-year-old female who presented to the emergency department for evaluation of syncope. She was seen in our facility recently after having a cardiac arrest. Reviewing her previous notes it sounds as though she is had cardiac defibrillation in the past. I'm unsure if the patient suffered from a wide complex tachycardia cardiac arrest but given her past medical history and is very possible. I discussed the patient's laboratory and radiographic studies with her and her family members. I did think the patient might need to be evaluated for defibrillator but talking the patient's family members it sounds as though they only want limited interventions for her because of her underlying medical issues. I do not feel that this is unreasonable at this time. She does have a follow-up appointment with her primary care physician in the morning. She was encouraged to keep this appointment. They were also encouraged to limit her activity. There are also encouraged to return the emergency Department immediately if symptoms change worsen or the need arises. Medication Reconcilliation Current Medication List: was personally reviewed by me Blood Pressure Screening Patient's blood pressure: Elevated blood pressure Blood pressure disposition: Elevated BP felt to be situational Impression Primary Impression: Syncope Additional Impression: Anemia Scribe Attestation The scribe's documentation has been prepared under my direction and personally reviewed by me in its entirety. I confirm that the note above accurately reflects all work, treatment, procedures, and medical decision making performed by me. Departure Information Dispostion Home / Self-Care Referrals Edda Suggs M.D. (PCP) Patient Instructions [facility], Syncope Additional Instructions Rest and avoid any strenuous activity. Continue all medications as prescribed. Follow-up with your family doctor as scheduled tomorrow. Return to the emergency department if symptoms worsen or if need arises. Discussed the possibility with your primary care physician that she may require a Holter monitor or a cardiology referral for a possible defibrillator or pacemaker. Problem Qualifiers Primary Impression: Syncope Syncope type: unspecified Qualified Codes: R55 - Syncope and collapse Additional Impression: Anemia Anemia type: unspecified type Qualified Codes: D64.9 - Anemia, unspecified
--- NOTE | 2017-05-03 14:20 | DIAGNOSTIC IMAGING REPORT ---
CHEST ONE VIEW PORTABLE HISTORY: 72 years-old Female EVALUATE ALTERED MENTAL STATUS/WEAKNESS COMPARISON: Chest radiograph 04/17/2017 TECHNIQUE: Portable upright AP view of the chest FINDINGS: Cardiac silhouette is again mildly enlarged. There is atherosclerosis of the aorta. There is mild biapical pleural parenchymal scarring. There is improved aeration of the bilateral lung bases from comparison study. No pneumothorax, new focal airspace consolidation or overt pulmonary edema. The bones appear to be grossly intact. IMPRESSION: No acute cardiopulmonary process. There is resolution of the previously described bibasilar airspace opacities. The above report was generated using voice recognition software. It may contain grammatical, syntax or spelling errors. Electronically signed by: Yrn Ferrera M.D. 05/03/2017 2:19 PM Dictated Date/Time: 05/03/2017 2:18 PM
[2017-05-03 14:52] LABS: PARTIAL THROMBOPLASTIN RATIO 0.8; PROTHROMBIN TIME (PATIENT) 10.4 SECONDS (9.0-12.0)
[2017-05-03 15:08] LABS: ALT/SGPT 17 U/L (12-78); AST/SGOT 27 U/L (15-37); BLOOD UREA NITROGEN 23 mg/dl (7-18); BUN/CREATININE RATIO 16.6 (10-20); CALCIUM 8.4 mg/dl (8.5-10.1); CARBON DIOXIDE 25 mmol/L (21-32); CHLORIDE 110 mmol/L (98-107); GLUCOSE 79 mg/dl (70-99); MAGNESIUM 2.2 mg/dl (1.8-2.4); POTASSIUM 4.7 mmol/L (3.5-5.1); SODIUM 141 mmol/L (136-145)
--- NOTE | 2017-05-03 15:08 | DIAGNOSTIC IMAGING REPORT ---
CT SCAN OF THE BRAIN WITHOUT IV CONTRAST CLINICAL HISTORY: Change in mental status. Weakness. COMPARISON STUDY: CT of the brain dated 04/17/2017. TECHNIQUE: Unenhanced axial CT scan of the brain is performed from the vertex to the skull base. CT DOSE: 691.05 mGy.cm FINDINGS: Brain parenchyma: Left hemispheric encephalomalacia with ex vacuo dilatation of the left lateral ventricle is similar to previous. There are age-related involutional changes noting mild subcortical and periventricular microangiopathic change. A chronic lacunar infarct is noted in the left cerebellar hemisphere. There is no hemorrhage, mass effect, or evidence of acute territorial ischemia by CT criteria. Carrillo-white matter is preserved. No extra-axial fluid collection is seen. Ventricles, sulci, cisterns: Prominent secondary to involutional change. See above. Intracranial vasculature: There is atherosclerotic calcification of the cavernous carotid and vertebral arteries. Calvarium: Unremarkable. Sinuses and mastoids: Trace mucosal thickening is seen in the left maxillary antrum. The remaining visualized paranasal sinuses are clear. The mastoid air cells are well pneumatized. Orbits: The bony orbits are grossly intact. IMPRESSION: Senescent and chronic changes as above. There is no hemorrhage, mass effect, or evidence of acute territorial ischemia by CT criteria. Electronically signed by: Jai Gonzalez M.D. 05/03/2017 3:06 PM Dictated Date/Time: 05/03/2017 3:00 PM
[2017-05-03 15:12] LABS: ALKALINE PHOSPHATASE 121 U/L (45-117); CKMB/CK RATIO 3.1 (0-3.0); PHOSPHORUS 3.4 mg/dl (2.5-4.9)
[2017-05-03 16:13] LABS: HEMATOCRIT 28.4 % (37-47); MEAN CELL VOLUME 91.3 fL (80-100); MEAN CORPUSCULAR HEMOGLOBIN 29.9 pg (25-34); MEAN CORPUSCULAR HGB CONC 32.7 g/dl (32-36); MEAN PLATELET VOLUME 10.1 fL (7.4-10.4); PLATELET COUNT 248 K/uL (130-400); RED BLOOD COUNT 3.11 M/uL (4.2-5.4); WHITE BLOOD COUNT 5.01 K/uL (4.8-10.8)
[2017-05-03 16:18] LABS: BASO % 0.6 %; BASO ABS # 0.03 K/uL (0-0.2); COMPLETE YES; EOS % 2.2 %; IG% 0.2 %; LYMPH % 36.3 %; LYMPH ABS # 1.82 K/uL (1.2-3.4); MONO % 9.2 %; NEUT % 51.5 %; POIKILOCYTOSIS PRESENT
[2017-05-03 17:05] VITALS: BP 173/86; PULSE 67; O2SAT 96
== END 2017-05-03 17:05 | disposition home or self-care (01) ==
LOC: EDBD 13:28 → C.EDB 13:30
DX: R55 Syncope and collapse (principal); D64.9 Anemia, unspecified; I50.9 Heart failure, unspecified; E78.5 Hyperlipidemia, unspecified; I12.9 Hypertensive chronic kidney disease with stage 1 through stage 4 chronic kidney disease, or unspecified chronic kidney disease; N18.3 Chronic kidney disease, stage 3 (moderate); Z79.82 Long term (current) use of aspirin; Z79.899 Other long term (current) drug therapy; Z80.9 Family history of malignant neoplasm, unspecified; Z83.3 Family history of diabetes mellitus; Z82.49 Family history of ischemic heart disease and other diseases of the circulatory system; Z84.1 Family history of disorders of kidney and ureter; Z82.0 Family history of epilepsy and other diseases of the nervous system